=== PATIENT | male | born 1940 | race Caucasian/White ===

== ENCOUNTER 2019-02-08 09:27 | Emergency (ER) | payer OTHER, SELFPAY ==
[2019-02-08 09:28] VITALS: BP 194/126; PULSE 92; RESP 18; TEMP 36.6; O2SAT 96; BMI 31.5
--- NOTE | 2019-02-08 09:46 | RAD_ITS ---
STUDY: X-RAY - LEFT SHOULDER REASON FOR EXAM: Male, 78 years old. History of fall 3 days ago. TECHNIQUE: 4 view(s) of the shoulder. COMPARISON: None. FINDINGS: There is mild degenerative arthrosis of the glenohumeral articulation. There is degenerative arthrosis of the acromioclavicular joint without inferior osseous spur formation. Normal acromion. There are mild cystic changes of the humeral head. The soft tissue structures are unremarkable. Normal visualized pulmonary apex. RAD/Shoulder min 2 Views IMPRESSION: Mild degenerative arthrosis. No demonstrated acute fracture or dislocation. Electronically Signed: Larry Neely MD at 10:50 EDT Tel , Service support ,
[2019-02-08 09:58] VITALS: BP 176/80; PULSE 94; RESP 18; O2SAT 95
--- NOTE | 2019-02-08 11:40 | ED.VISSUMM ---
- ER Visit Summary Date of Service: 02/08/19 Chief Complaint: Shoulder pain History of Present Illness: The patient is a 78 M with left shoulder pain for about a week. No fever or chills associated with this. No chest pain or shortness of breath associated with this. He denies any back pain or tearing sensation. He does have some paraspinal left-sided neck pain. He is here since he had so much pain last night he could not sleep. It is worse when he lays on his left shoulder. Physical Examination: Otherwise normal exam, regular rate and rhythm clear lungs bilaterally abdomen is soft and nontender he has left shoulder tenderness but is posterior, he has no pain with abduction of the shoulder or any rotator cuff symptoms. He also has quite a bit of left paraspinal neck pain with a few trigger points. Emergency Department Course and Treatment: X-ray of the shoulder does show some degeneration, otherwise no fracture. He appears well I will discharge him with analgesia for home. He may even need an MRI of either the shoulder or the C-spine. At this time he has normal strength and sensation and no neurological symptoms no need for further evaluation daily. He has no chest pain shortness of breath, he has reproducible left-sided shoulder pain there is no cardiac component. Discharge stable condition Impression: [Left shoulder pain] This note was generated with Zelgor dictation software. It may contain incorrect words, spelling, and punctuation that were not noted in review of the chart prior to signing ED Disposition - Plan for ED Patient: Disposition: Home or Assisted Living Instructions: ED Sprain Strain Neck Prescriptions: Hydrocodone Bitart/Apap 5-325 [[employer] 5MG-325MG] 1 tab PO Q4H PRN PRN 2 Days #10 tab PRN Reason: Pain [facility]errals: [facility] [Primary Care Provider] - 3-5 Days
--- NOTE | 2019-02-08 11:44 | ED.DCSUM_ITS ---
- ER Visit Summary Date of Service: 02/08/19 Chief Complaint: Shoulder pain History of Present Illness: The patient is a 78 M with left shoulder pain for about a week. No fever or chills associated with this. No chest pain or shortness of breath associated with this. He denies any back pain or tearing se nsation. He does have some paraspinal left-sided neck pain. He is here since he had so much pain last night he could not sleep. It is worse when he lays on his left shoulder. Physical Examination: Otherwise normal exam, regular rate and rhythm clear lungs bilaterally abdomen is soft and nontender he has left shoulder tenderness but is posterior, he has no pain with abduction of the shoulder or any rotator cuff symptoms. He also has quite a bit of left paraspinal neck pain with a few trigger points. Emergency Department Course and Treatment: X-ray of the shoulder does show some degeneration, otherwise no fracture. He appears well I will discharge him with analgesia for home. He may even need an MRI of either the shoulder or the C-spine. At this time he has normal strength and sensation and no neurological symptoms no need for further evaluation daily. He has no chest pain shortness of breath, he has reproducible left-sided shoulder pain there is no cardiac component. Discharge stable condition Impression: [Left shoulder pain] This note was generated with PixSense dictation software. It may contain incorrect words, spelling, and punctuation that were not noted in review of the chart prior to signing ED Disposition - Plan for ED Patient: Disposition: Home or Assisted Living Instructions: ED Sprain Strain Neck Prescriptions: Hydrocodone Bitart/Apap 5-325 [[place] 5MG-325MG] 1 tab PO Q4H PRN PRN 2 Days #10 tab PRN Reason: Pain [facility]errals: [facility] [[facility]] - 3-5 Days
[2019-02-08 11:53] VITALS: BP 162/78; PULSE 82; RESP 16; O2SAT 98
== END 2019-02-08 11:54 | disposition home or self-care (01) ==
PROVIDERS: Emergency Provider Emergency Medicine
DX: M25.512 Pain in left shoulder (principal); M54.2 Cervicalgia; E11.9 Type 2 diabetes mellitus without complications; M10.9 Gout, unspecified
CPT/HCPCS: 73030; 99282

== ENCOUNTER 2019-02-22 02:25 | Emergency (ER) | payer OTHER, SELFPAY ==
[2019-02-22 02:26] VITALS: BP 192/114; PULSE 96; RESP 18; TEMP 36.6; O2SAT 96; BMI 31.6
[2019-02-22 02:33] VITALS: BP 169/90
[2019-02-22 03:11] VITALS: PULSE 75; RESP 20; O2SAT 98
--- NOTE | 2019-02-22 03:12 | ED.VISSUMM ---
- ER Visit Summary Date of Service: 02/22/19 Chief Complaint: [Elevated blood sugar] History of Present Illness: The patient is a 78 M [presents to the emergency department with an elevated blood sugar that started yesterday. Patient states he is got as high as 244 at home. Patient's had some problems with his left shoulder and was seen in the emergency department about a week ago or so and had x-rays which were negative. Patient was started on tapering dose prednisone. Patient states that he has a history of borderline diabetes that usually diet controlled and exercise controlled. Patient became concerned tonight when he could not get his blood sugar down by exercising on a bicycle. Patient states it went from 230 down to 193 and he felt like that was out of control. He denies any recent illness. He denies any chest pain. He denies shortness of breath. He denies vomiting or diarrhea. He denies any fevers.] Physical Examination: [HEENT-PERRLA, EOMI. Cranial nerves II through XII grossly intact. TMs clear. Mucous membranes moist. No adenopathy. Cardiovascular-regular rate and rhythm without murmur or ectopy Lungs-clear to auscultation, chest wall stable without crepitus or subcu emphysema Abdomen-normoactive bowel sounds, soft, nontender, no rebound or rigidity, no peritoneal signs. Extremities-intact ?4, normal range of motion, normal pulses, atraumatic] Test Results: [Patient had a fingerstick blood sugar 173.] Emergency Department Course and Treatment: [Patient did not require any further treatment] Treatment Plan: [Patient advised to keep a journal of his blood pressure and his blood sugars. Patient to follow-up with his primary care physician. I explained that his blood sugars may be elevated related to the prednisone. Patient does not appear to be in DKA. Patient is otherwise not been ill.] Disposition: [Discharged home in stable condition] Impression: [Hyperglycemia] This note was generated with Telespree dictation software. It may contain incorrect words, spelling, and punctuation that were not noted in review of the chart prior to signing ED Disposition - Plan for ED Patient: [facility]errals: [facility] [Primary [facility] Provider] -
--- NOTE | 2019-02-22 03:28 | ED.DEP ---
ED Disposition - Plan for ED Patient: Instructions: ED Hyperglycemia New Susp Diabetes Referrals: [facility] [Primary [facility] Provider] - 3-5 Days
[2019-02-24 16:31] LABS: Bedside Glucose 173 mg/dL (70-110)
== END 2019-02-22 03:44 | disposition home or self-care (01) ==
LOC: ED 03:16
PROVIDERS: Emergency Provider Emergency Medicine
DX: E11.65 Type 2 diabetes mellitus with hyperglycemia (principal); Z79.51 Long term (current) use of inhaled steroids; Z79.899 Other long term (current) drug therapy; I10 Essential (primary) hypertension
CPT/HCPCS: 82962; 99282

== ENCOUNTER 2022-02-20 13:52 | Emergency (ER) | payer OTHER, SELFPAY ==
[2022-02-20 13:53] VITALS: BP 156/107; PULSE 106; RESP 20; TEMP 36.6; O2SAT 98; BMI 33.5
--- NOTE | 2022-02-20 14:05 | EKG12_ITS ---
Test Reason : SOB Blood Pressure : / mmHG Vent. Rate : 099 BPM Atrial Rate : 099 BPM P-R Int : 184 ms QRS Dur : 146 ms QT Int : 398 ms P-R-T Axes : 036 -10 035 degrees QTc Int : 510 ms Sinus rhythm with Premature atrial complexes Right bundle branch block Abnormal ECG Confirmed by SWATI MOTA, OLINDA ([id number]), communications editor SURJIT DISLA ([id number]) on 02/22/2022 9:57:47 AM Referred By: EULALOI Confirmed By:OLINDA LONGORIA MD
--- NOTE | 2022-02-20 14:11 | EDS_ITS ---
HPI History of Present Illness Chief Complaint: Shortness of Breath Informant: patient and spouse/S.O. Onset/Context/Timing Onset: Days Context: gradual Timing: Intermittent Current Severity: Mild Maximum Severity: Mild Associated Symptoms Negative for cough, fever, sore throat, sweats, white sputum, yellow sputum or green sputum Chest Pain: Positive for None Narrative Narrative: 81-year-old male past medical history diabetes. He denies any history of cardiac disease. Currently is on no medications. States the last several days he has noticed he is more short of breath primarily with exertion. He also has developed swelling in his feet and has gained about 10 pounds. He denies any history of any type of cardiac disease. No history of renal disease. He denies any chest pain or fever. He has never had a DVT or PE or recent risk factors. PE Risk Factors: Negative for Cancer, OCP + Smoking + > 35, Prior DVT or PE, Recent immobilization, Recent surgery and Recent travel Prior similar symptoms: No Recent Illness/Hospitalization: No PFSH PFSH Medical History Diabetes Heart murmur Hx of gout Hx of rotator cuff tear Home Medications ibuprofen 400 mg PO Q6H PRN PRN 02/22/19 [History Last Taken Unknown] furosemide [Lasix] 20 mg PO DAILY #30 tab 02/20/22 [Rx Last Taken Unknown] multivitamin 1 tab PO DAILY 02/20/22 [History Last Taken Unknown] Allergy/AdvReac Type Severity Reaction Status Date / Time amoxicillin Allergy Shortness Verified 02/20/22 13:54 of breath ciprofloxacin [From Cipro] Allergy Other Verified 02/20/22 13:55 simvastatin [From Zocor] Allergy Unknown Verified 02/20/22 13:54 naproxen AdvReac Unknown Verified 02/20/22 13:54 Social History Smoking Status: Never smoker ROS ROS ED ROS Narrative Leg swelling. Exertional shortness of breath. Review of Systems ROS Unobtainable: Denies due to encephalopathy Constitutional Constitutional ED: Denies fever(s) Eyes Eyes: Denies change in vision ENT ENT ED: Denies ear pain Cardiovascular Cardiovascular: Denies chest pain or palpitations Respiratory/Chest Respiratory/Chest: Reports dyspnea and dyspnea on exertion; Denies cough or sputum Gastrointestinal Gastrointestinal: Denies abdominal pain, diarrhea, nausea or vomiting Genitourinary Genitourinary ED: Denies dysuria Musculoskeletal Musculoskeletal: Denies myalgias Integumentary Denies rash Neurologic Neurologic: Denies headache(s) Psychiatric Psychiatric: Denies depression Endocrine Endocrinology: Denies polyuria Hematologic/Lymphatic Hematologic/Lymphatic: Denies easy bruising Allergic/Immunologic Allergic/Immunologic ED: Denies urticaria EXAM Physical Exam Narrative Exam Narrative: 81-year-old male no acute distress vital signs stable afebrile. Pulse ox 90% on room air no hypoxia. HEENT exam unremarkable. Neck nontender. Lungs clear to auscultation bilaterally. Heart shows no mildly tachycardic rate about 105. I do not appreciate a murmur he has a history of a murmur. Abdomen soft nontender obese. Moving all 4 extremities. Nontender. He does have edema in his lower extremities ankles and feet. Calves are nontender. No cords. Neurologically is awake and alert with no focal motor deficits. Const Vital Signs: 02/20/22 13:53 02/20/22 14:05 02/20/22 14:06 Temperature 98 F Temperature Source Temporal Pulse Rate 106 H Respiratory Rate 20 H Respiratory Effort Short of Breath Labored Respiratory Pattern Tachypnea Blood Pressure 156/107 H Blood Pressure Mean 123 Pulse Ox 98 Oxygen Delivery Method Room Air Room Air 02/20/22 14:07 Temperature Temperature Source Pulse Rate Respiratory Rate Respiratory Effort Short of Breath Respiratory Pattern Blood Pressure Blood Pressure Mean Pulse Ox Oxygen Delivery Method Positive well nourished, well developed and obese; Negative for cachectic, contractures or unkempt General Appearance ED: well developed and NAD; Negative for unkempt, cachectic, contractures or pallor Nutritional Appearance: obese; Negative for cachectic HEENT Reports moist mucous membranes atraumatic; Negative for trauma or tenderness Eyes PERRL and EOMs intact bilaterally Neck no lymphadenopathy, supple, no meningeal signs and no JVD General: Negative for tenderness Resp normal respiratory effort and clear to auscultation bilaterally Auscultation: Negative for rales, rhonchi or wheezes Cardio regular rate, regular rhythm, S1 normal heart sound, S2 normal heart sound and no murmurs GI non-tender, non-distended and no masses Auscultation: normoactive bowel sounds Palpation: soft; Negative for tender, guarding or rebound tenderness present Back/Spine normal to inspection; Negative for no CVA tenderness Extremity normal to inspection General Extremety ED: Yes edema; Negative for tenderness General Extremity: edema Neuro oriented x3 Sensorium / Orientation: alert, oriented to person, oriented to place and oriented to time; Negative for orientation impaired, confused, lethargic or stuporous Motor Exam: strength 5/5 throughout Psych mental status grossly normal Appearance: Negative for unkempt Thought Process: normal thought process Skin no wounds General Skin Exam: Negative for pallor Lesions: no lesions Rashes: no rashes MDM MDM MDM Narrative Medical decision making narrative: 81-year-old male with weight gain and pedal edema. He will undergo a cardiac work-up for shortness of breath and peripheral edema. Repeat exam patient is doing well. Given the fact that he is short of breath and had weight gain and peripheral edema along with his labs I think he has new onset CHF. I do not have a specific cause. I discussed this with the patient and his . His vital signs are stable. Pulse ox is 90% on room air. No hypoxia.. Will be discharged home on Lasix 20 mg a day. Dose given here and prescription sent to local pharmacy. Follow-up with Dr. Johnson Freedman of cardiology. Lab Data Attestation: I reviewed the patient's lab results. Lab results narrative: CBC shows a white count of 6. H&H of 15 and 45. Platelets of 203. Electrolytes unremarkable gap of 6 BUN of 22 creatinine 1.1. Glucose 126. Troponin is 53. BNP is 1233. Labs: Laboratory Results - last 24 hr 02/20/22 02/20/22 02/20/22 14:15 14:15 14:15 WBC 6.1 RBC 4.86 Hgb 15.0 Hct 45.3 MCV 93.2 MCH 30.9 MCHC 33.1 RDW Std Deviation 45.1 H RDW Coeff of Ernestine 13.3 Plt Count 203 MPV 10.1 Immature Gran % (Auto) 0.300 Neut % (Auto) 78.7 H Lymph % (Auto) 10.6 L [place]lin % (Auto) 8.8 Eos % (Auto) 1.3 Baso % (Auto) 0.3 Absolute Neuts (auto) 4.8 Absolute Lymphs (auto) 0.65 L Nucleated RBC % 0 Sodium 137 Potassium 4.2 Chloride 104 Carbon Dioxide 27.0 Anion Gap 6 BUN 22 H Creatinine 1.12 Estim Creat Clear Calc 54.32 Est GFR (MDRD) Af Amer 81 Est GFR (MDRD) Non-Af 67 BUN/Creatinine Ratio 19.6 Glucose 226 H Calcium 9.0 Troponin I High Sens 53 B-Natriuretic Peptide 1233.2 H Radiography Chest X-Ray - ED: 1 View, Heart, Lungs, Mediastinum, Bony Structures, Chronic Changes, Cardiomegaly and CHF Diagnostic Testing: Clinical Impression(s) from Imaging Studies Chest X-Ray 02/20/22 14:40 IMPRESSION: Patchy infiltrates at the lung bases more prominent on the left side with blunting of the angles. Mild increased interstitial markings in the right midlung. Electronically Signed: Adolfo Huerta MD at 14:57 EDT Reading Location ID and State: [facility] / [place] , Service support , Chest x-ray, portable, single view interpreted myself shows cardiomegaly and vascular congestion consistent with CHF. No pneumonia. No effusions. The only other chest x-ray we have for comparison is from 2005 and is cardiac silhouette is much larger now than 17 years ago. Rhythm Strip Rhythm Strip: Sinus Rhythm Rate: 99 Ectopy: PAC(s) EKG Initial EKG: Attestation: I personally reviewed and interpreted this EKG as follows: Interpretation: Sinus Rhythm, No Acute Injury Pattern and RBBB Comments: Sinus rhythm rate of 99. PACs. Right bundle branch. Discharge Plan Triage Chief Complaint: Shortness of Breath ED Provider: Chidi Valverde Dx/Rx/DC Orders Clinical Impression: Acute dyspnea, Congestive heart failure, History of diabetes mellitus Instructions: ED Heart Failure, Congestive (CHF) Prescriptions: New furosemide [Lasix] 20 mg tablet 20 mg PO DAILY Qty: 30 RF: 0 No Action ibuprofen 400 MG tablet 400 mg PO Q6H PRN PRN (Reason: GOUT) RF: 0 multivitamin Tablet 1 tab PO DAILY RF: 0 [facility] Care Provider: [facility] Referrals: Johnson Freedman MD [STAFF PHYSICIAN] - As soon as possible [facility] [Primary Care Provider] - Activity Restrictions/Additional Instructions: Start taking your Lasix 20 mg once a day in the morning after breakfast. It will make you urinate a lot more. This is albumin of the fluid in your legs and your lungs. This medication can decrease your potassium level so make sure you are eating plenty of fruits and vegetables. Call and follow-up with a portrait artist Dr. Johnson Freedman. They can get an echocardiogram of your heart and help with the treatment of your congestive heart failure. Return to emergency department if you are feeling worse. Disposition Disposition: Home, Self Care
[2022-02-20 14:28] LABS: Absolute Lymphocyte Count 0.65 X10^3/uL (0.83-4.51); Absolute Neutrophil Count 4.8 X10^3/uL (2.0-7.7); Basophil# 0.02 X10^3/uL; Basophil% 0.3 % (0-1); Eosinophil# 0.08 X10^3/uL; Eosinophils% 1.3 % (0-5); Hematocrit 45.3 % (40-54); Lymphocyte # 0.65 X10^3/ul (0.83-4.51); Lymphocyte % 10.6 % (19-41); Mean Corp Hgb Conc 33.1 g/dL (32-36); Mean Corpuscular Hgb 30.9 pg (27.0-32.0); Mean Corpuscular Volume 93.2 fL (80-94); Mean Platelet Vol. 10.1 fl (6.2-12.0); Monocyte# 0.54 X10^3/uL; Monocyte% 8.8 % (0-10); NRBC Flagged by Analyzer 0 % (0-5); Neutrophil # 4.82 X10^3/uL (2.7-7.7); Neutrophil % 78.7 % (47-70); Platelet Count 203 K/mm3 (150-450); RBC Distribution Width CV 13.3 % (11.6-14.6); RBC Distribution Width SD 45.1 fl (35.1-43.9); Red Blood Count 4.86 M/mm3 (4.6-6.2); White Blood Count 6.1 K/mm3 (4.4-11.0)
--- NOTE | 2022-02-20 14:40 | RAD_ITS ---
STUDY: X-RAY CHEST REASON FOR EXAM: Male, 81 years old. Chest pain TECHNIQUE: Single AP portable view of the chest. COMPARISON: None. FINDINGS: EKG electrodes are seen. Patchy infiltrates at the lung bases slightly worse on the left side with blunting of both costophrenic angles. Mild increased interstitial markings in the right mid lung. Follow-up is recommended. Normal size heart. Normal mediastinum and epi. Normal visualized pulmonary arteries. There is atherosclerotic calcification of the aortic arch with tortuosity. There are diffuse degenerative changes of the visualized thoracic spine. Normal visualized ribs, clavicles, and shoulders. There is no demonstrated abnormality of the visualized soft tissue structures of the upper abdomen. RAD/Chest 1 View (Portable) IMPRESSION: Patchy infiltrates at the lung bases more prominent on the left side with blunting of the angles. Mild increased interstitial markings in the right midlung. Electronically Signed: Adolfo Huerta MD at 14:57 EDT ,
[2022-02-20 14:42] LABS: Anion Gap 6 (5-15); BUN 22 mg/dL (7-18); BUN/Creat Ratio 19.6 RATIO (10-20); Chloride 104 mmol/L (98-107); Creatinine, Serum 1.12 mg/dL (0.70-1.30); EST Glomerular Filtration Rate 67 mL/min (>60); Est Glom Filt Rate - Afr Amer 81 mL/min (>60); Estimated Creatinine Clearance 54.32 ml/min; Glucose 226 mg/dL (74-106); Potassium 4.2 mmol/L (3.5-5.1); Sodium Level 137 mmol/L (136-145); Troponin-I HS 53 pg/mL (3.0-78.0)
[2022-02-20 14:57] LABS: BNP,B-Type NATRIURETIC PEPTIDE 1233.2 pg/mL (0-100)
[2022-02-20] MEDS: Furosemide 20 MG Tablet PO (15:23)
[2022-02-20 15:27] VITALS: BP 136/94; PULSE 87; RESP 15; O2SAT 98
--- NOTE | 2022-02-21 12:55 | CM.ED ---
ER RNCM DC f/u Call: ED Visit 02.20.22 for SOB Called listed number on demographics. S/w patient and this instructional writer introduced self and role. Patient states has been taking the Lasix and seems to me working. Still has some swelling to his feet and currently relaxing with them propped up. Has an Echo scheduled for 03.22.22 at [facility] and they are going to request records from [facility]. Has called a few times to Dr Freedman and left a Vm, waiting on return call to sett up f/u appointment but states they only work half days some days. No further concerns or issues voiced at this time. This writers contact provided should they have any questions or issues with their f/u and care needs. FARA Rivas
== END 2022-02-20 15:29 | disposition home or self-care (01) ==
PROVIDERS: Emergency Provider Emergency Medicine; Visit Provider Emergency Medicine
DX: R06.00 Dyspnea, unspecified (principal); I50.9 Heart failure, unspecified; E11.9 Type 2 diabetes mellitus without complications; Z79.899 Other long term (current) drug therapy; M10.9 Gout, unspecified; E66.9 Obesity, unspecified; I45.10 Unspecified right bundle-branch block; I49.1 Atrial premature depolarization; Z68.33 Body mass index [BMI] 33.0-33.9, adult
CPT/HCPCS: 71045; 80048; 83880; 84484; 85025; 93005; 99285

== ENCOUNTER 2022-04-07 07:27 | Inpatient (IN) | payer OTHER, SELFPAY ==
[2022-04-07] VITALS (13 sets, daily range): BP systolic 85–150; BP diastolic 69–102; PULSE 68–112; RESP 16–24; TEMP 35.8–36.6; O2SAT 95–98; BMI 30.5; BMI 30.7
--- NOTE | 2022-04-07 07:47 | RAD_ITS ---
STUDY: X-RAY CHEST REASON FOR EXAM: Male, 82 years old. dyspnea TECHNIQUE: Single AP portable view of the chest. COMPARISON: 02/20/2022 FINDINGS: Poor inspiration with some bibasilar atelectasis. There is no demonstrated pleural abnormality. There is moderate cardiac enlargement. Normal mediastinum and epi. Normal visualized pulmonary arteries. Normal visualized aortic arch and descending thoracic aorta. Normal visualized thoracic spine. Normal visualized ribs, clavicles, and shoulders. There is no demonstrated abnormality of the visualized soft tissue structures of the upper abdomen. RAD/Chest 1 View (Portable) IMPRESSION: Poor inspiration with some bibasilar atelectasis. Electronically Signed: Smooth Boyer MD at 8:47 EDT ,
--- NOTE | 2022-04-07 07:47 | EKG12_ITS ---
Test Reason : CP Blood Pressure : / mmHG Vent. Rate : 106 BPM Atrial Rate : 107 BPM P-R Int : 000 ms QRS Dur : 148 ms QT Int : 356 ms P-R-T Axes : 000 106 -39 degrees QTc Int : 472 ms Atrial fibrillation Right bundle branch block Inferior infarct , age undetermined Anterior infarct , age undetermined Abnormal ECG Confirmed by JERE MOTA, GUY ([id number]), editor map SURJIT DISLA ([id number]) on 04/09/2022 1:28:08 PM Referred By: Confirmed By:GUY OQUENDO MD
--- NOTE | 2022-04-07 08:00 | ED.VIS.DYS ---
HPI History of Present Illness Chief Complaint: Shortness of Breath Informant: patient and family Narrative Narrative: 82-year-old male presenting to the emergency room with worsening shortness of breath. Patient notes that he was diagnosed with congestive heart failure several weeks ago. Started on Lasix. He reports an echocardiogram being performed in [place] through the [place]. He notes over the past couple days his shortness of breath is gotten worse. He notes some swelling of his legs. No fever. He notes no change in bowel or bladder habits. He denies any palpitations or chest pain. [facility] Medical History Carpal tunnel syndrome Cervical spinal stenosis CHF (congestive heart failure) Diabetes Diabetic neuropathy Gout Heart murmur Hx of rotator cuff tear Mixed hyperlipidemia Type 2 diabetes mellitus Home Medications ibuprofen 200 mg PO DAILY PRN 02/22/19 [History Last Taken Unknown] multivitamin 1 tab PO DAILY 02/20/22 [History Last Taken Unknown] aspirin 81 mg tablet,delayed release 81 mg PO DAILY 03/06/22 [History Last Taken Unknown] cholecalciferol (vitamin D3) 50 mcg (2,000 unit) tablet 50 mcg PO DAILY 03/06/22 [History Last Taken Unknown] furosemide [Lasix] 40 mg PO DAILY 04/07/22 [History Last Taken Unknown] Allergy/AdvReac Type Severity Reaction Status Date / Time amoxicillin Allergy Shortness Verified 04/07/22 07:34 of breath ciprofloxacin [From Cipro] Allergy Other Verified 04/07/22 07:34 simvastatin [From Zocor] Allergy Unknown Verified 04/07/22 07:34 naproxen AdvReac Unknown Verified 04/07/22 07:34 Family History Father Heart disease Surgical History History of tonsillectomy Social History Smoking Status: Never smoker alcohol intake: current details: occasional substance use type: does not use caffeine: Yes ROS ROS ED Constitutional Constitutional ED: Denies chills or weight loss Eyes Eyes: Denies change in vision or diplopia ENT ENT ED: Denies ear pain, rhinorrhea or sore throat Cardiovascular Cardiovascular: Denies chest pain, orthopnea, palpitations or racing heartbeat Respiratory/Chest Respiratory/Chest: Reports dyspnea and dyspnea on exertion; Denies cough or orthopnea Gastrointestinal Gastrointestinal: Denies abdominal pain, diarrhea, nausea or vomiting Genitourinary Genitourinary ED: Denies dysuria, hematuria or urinary frequency Musculoskeletal Musculoskeletal: Denies arthralgias or myalgias Integumentary Denies abscess or rash Neurologic Neurologic: Denies headache(s) or weakness Psychiatric Psychiatric: Denies anxiety, depression, suicidal ideation or suicidal thoughts Endocrine Endocrinology: Denies polydipsia, polyphagia or polyuria Allergic/Immunologic Allergic/Immunologic ED: Denies mouth swelling, tongue swelling or urticaria EXAM Physical Exam Const Vital Signs: 04/07/22 07:30 04/07/22 08:00 Temperature 96.5 F L Temperature Source Temporal Pulse Rate 106 H 107 H Respiratory Rate 24 H 22 H Blood Pressure 117/83 H 115/93 H Blood Pressure Mean 94 100 Pulse Ox 98 95 Oxygen Delivery Method Nasal Cannula Nasal Cannula Oxygen Flow Rate (L/min) 2 2 Positive well nourished, well developed and obese General Appearance ED: well developed Nutritional Appearance: obese HEENT Reports normocephalic, head/scalp atraumatic, TM's clear and moist mucous membranes atraumatic Tympanic Membrane ED: Yes TM's clear Eyes PERRL and EOMs intact bilaterally Neck no lymphadenopathy, supple and no JVD Resp normal respiratory effort and clear to auscultation bilaterally Cardio Rate: tachycardic Rhythm: abnormal rhythm irregularly irregular GI normal to inspection, nondistended, normoactive bowel sounds and non-tender Palpation: soft Back/Spine no CVA tenderness and normal ROM Extremity normal to inspection General Extremety ED: Yes edema General Extremity: edema Neuro oriented x3 and CN's II-XII intact bilaterally Sensorium / Orientation: alert Motor Exam: strength 5/5 throughout Psych mental status grossly normal Mood & Affect: Negative for depressed or tearful Skin no rashes or lesions noted and no wounds Rashes: no rashes MDM MDM MDM Narrative Medical decision making narrative: My interpretation of the chest x-ray is vascular congestion. White count 7.8 with a hemoglobin of 16.6. Creatinine 1.67 with a BUN of 37. Glucose of 240. Troponin is elevated 812 with a TSH of 4.15. Beta natruretic peptide elevated at 1200. Patient found to be in new onset atrial fibrillation. He was given Cardizem as well as aspirin and Lasix. Plan is admission into hospital Lab Data Attestation: I reviewed the patient's lab results. Labs: Laboratory Results - last 24 hr 04/07/22 04/07/22 04/07/22 07:40 07:40 07:40 WBC 7.8 RBC 5.30 Hgb 16.6 H Hct 50.0 MCV 94.3 H MCH 31.3 MCHC 33.2 RDW Std Deviation 48.1 H RDW Coeff of Ernestine 13.9 Plt Count 238 MPV 11.7 Immature Gran % (Auto) 0.500 Neut % (Auto) 80.8 H Lymph % (Auto) 9.9 L Warrick % (Auto) 7.7 Eos % (Auto) 0.8 Baso % (Auto) 0.3 Absolute Neuts (auto) 6.3 Absolute Lymphs (auto) 0.77 L Nucleated RBC % 0 PT 16.5 H INR 1.4 APTT 27.3 Sodium 132 L Potassium 4.7 Chloride 96 L Carbon Dioxide 23.0 Anion Gap 13 BUN 37 H Creatinine 1.67 H Estim Creat Clear Calc 38.08 Est GFR (MDRD) Af Amer 51 L Est GFR (MDRD) Non-Af 42 L BUN/Creatinine Ratio 22.2 H Glucose 240 H Calcium 9.0 Magnesium 2.3 Total Bilirubin 1.20 H AST 29 ALT 30 Alkaline Phosphatase 85 Troponin I High Sens 812 H* B-Natriuretic Peptide Total Protein 7.3 Albumin 3.8 Globulin 3.5 Albumin/Globulin Ratio 1.1 TSH 4.15 H 04/07/22 07:40 WBC RBC Hgb Hct MCV MCH MCHC RDW Std Deviation RDW Coeff of Ernestine Plt Count MPV Immature Gran % (Auto) Neut % (Auto) Lymph % (Auto) Warrick % (Auto) Eos % (Auto) Baso % (Auto) Absolute Neuts (auto) Absolute Lymphs (auto) Nucleated RBC % PT INR APTT Sodium Potassium Chloride Carbon Dioxide Anion Gap BUN Creatinine Estim Creat Clear Calc Est GFR (MDRD) Af Amer Est GFR (MDRD) Non-Af BUN/Creatinine Ratio Glucose Calcium Magnesium Total Bilirubin AST ALT Alkaline Phosphatase Troponin I High Sens B-Natriuretic Peptide 1212.6 H Total Protein Albumin Globulin Albumin/Globulin Ratio TSH Radiography Diagnostic Testing: Clinical Impression(s) from Imaging Studies Chest X-Ray 04/07/22 07:47 IMPRESSION: Poor inspiration with some bibasilar atelectasis. Electronically Signed: Smooth Boyer MD at 8:47 EDT , EKG Initial EKG: Attestation: I personally reviewed and interpreted this EKG as follows: Comments: Atrial fibrillation with a ventricular rate of 106 bpm. Right bundle branch block noted Discharge Plan Dx/Rx/DC Orders Clinical Impression: CHF (congestive heart failure), Atrial fibrillation, new onset, Non-ST elevation MS (NSTEMI) Disposition Disposition: Acute Care Hospital [facility]
[2022-04-07 08:21] LABS: Absolute Lymphocyte Count 0.77 X10^3/uL (0.83-4.51); Absolute Neutrophil Count 6.3 X10^3/uL (2.0-7.7); Basophil# 0.02 X10^3/uL; Basophil% 0.3 % (0-1); Eosinophil# 0.06 X10^3/uL; Eosinophils% 0.8 % (0-5); Hemoglobin 16.6 g/dL (13.0-16.5); Lymphocyte # 0.77 X10^3/ul (0.83-4.51); Lymphocyte % 9.9 % (19-41); Mean Corp Hgb Conc 33.2 g/dL (32-36); Mean Corpuscular Hgb 31.3 pg (27.0-32.0); Mean Corpuscular Volume 94.3 fL (80-94); Mean Platelet Vol. 11.7 fl (6.2-12.0); Monocyte% 7.7 % (0-10); NRBC Flagged by Analyzer 0 % (0-5); Neutrophil # 6.32 X10^3/uL (2.7-7.7); Neutrophil % 80.8 % (47-70); Platelet Count 238 K/mm3 (150-450); RBC Distribution Width CV 13.9 % (11.6-14.6); RBC Distribution Width SD 48.1 fl (35.1-43.9); White Blood Count 7.8 K/mm3 (4.4-11.0)
[2022-04-07 08:31] LABS: International Normalized Ratio 1.4; Prothrombin Time (Protime)PT. 16.5 SECONDS (11.7-14.9)
[2022-04-07 08:32] LABS: Partial Thromboplast Time 27.3 Seconds (24.1-36.2)
[2022-04-07 08:43] LABS: ALB/GLOB Ratio 1.1 RATIO (0.9-2.4); AST(SGOT) 29 U/L (15-37); Alanine Aminotransfer ALT/SGPT 30 U/L (16-61); Albumin, Serum 3.8 g/dL (3.2-5.0); Alkaline Phosphatase 85 U/L (45-117); Anion Gap 13 (5-15); BUN 37 mg/dL (7-18); BUN/Creat Ratio 22.2 RATIO (10-20); Chloride 96 mmol/L (98-107); Creatinine, Serum 1.67 mg/dL (0.70-1.30); EST Glomerular Filtration Rate 42 mL/min (>60); Est Glom Filt Rate - Afr Amer 51 mL/min (>60); Estimated Creatinine Clearance 38.08 ml/min; Globulin 3.5 g/dL (2.2-4.2); Glucose 240 mg/dL (74-106); Magnesium 2.3 mg/dL (1.6-2.6); Potassium 4.7 mmol/L (3.5-5.1); Protein, Total 7.3 g/dL (6.4-8.2); Sodium Level 132 mmol/L (136-145); Thyroid Stim Hormone (TSH) 4.15 uIU/mL (0.358-3.74); Troponin-I HS 812 pg/mL (3.0-78.0)
[2022-04-07 08:50] LABS: BNP,B-Type NATRIURETIC PEPTIDE 1212.6 pg/mL (0-100)
--- NOTE | 2022-04-07 08:50 | NURSING ---
CALLED [facility], TALKED TO KAREN
[2022-04-07] MEDS: dilTIAZem 25 MG/5 ML Vial 10 MG IV BOLUS (09:01)
[2022-04-07] MEDS: Furosemide 100 MG/10 ML Vial 60 MG IV (09:02)
[2022-04-07] MEDS: Aspirin 325 MG Tablet PO (09:06)
--- NOTE | 2022-04-07 09:35 | NURSING ---
0848 CALLED [facility]. TALKED TO KAREN.
--- NOTE | 2022-04-07 09:49 | NURSING ---
DR CHRISTIANSON FOR DR GALLAGHER
--- NOTE | 2022-04-07 09:55 | NURSING ---
CALLED [facility], TALKED TO KAREN IN TRANSFER LINE. SHE PUT INFO IN THEIR COMPUTER FOR C[facility]ODINATOR. THERE IS ONLY ONE ON WEEKENDS AND WE ARE THE 4TH ONE IN LINE
--- NOTE | 2022-04-07 09:59 | NURSING ---
FAXED CHART TO CARE COODINATOR AT [facility] [phone]
[2022-04-07 10:43] LABS: Troponin-I HS 1157 pg/mL (3.0-78.0)
--- NOTE | 2022-04-07 11:21 | HP.PCM.HOS_ITS ---
Documented by User: Urvashi Hair NP, [employer] 04/07/22 12:49 HPI - General General Date of Admission: 04/07/22 Date of Service: 04/07/22 Chief Complaint: Shortness of breath HPI Narrative JOSE WALDROP, is a 82 M who presents to the emergency room due to shortness of breath. States he was recently diagnosed with CHF and started on Lasix. He reports increased lower extremity swelling. Denies known weight gain. Denies chest pain. States today he had significant weakness and lightheadedness along with shortness of breath. His family called the squad and he was noted to have low oxygen levels. Patient states he has had shortness of breath for the past 3 to 4 weeks which has recently worsened despite being on Lasix. He states he is able to sleep on his side at night. He also states he has been working out as he does daily and yesterday rode his bike for 12 minutes. He denies chest pain during exercise. Does report occasional palpitations as well as dyspnea with exertion however reports he is still able to complete his daily activities and exercise. He denies previous cardiac history or cardiac evaluation prior to recent CHF diagnosis. He did undergo echocardiogram in the past 1 to 2 weeks through the [place] and was told his ejection fraction is 25%. He denies history of A. fib. Denies history of stress test or heart cath. He has a past medical history of type 2 diabetes mellitus which he states is diet and exercise controlled. Denies other medical history. [facility] Medical History Carpal tunnel syndrome Cervical spinal stenosis CHF (congestive heart failure) Diabetes Diabetic neuropathy Gout Heart murmur Hx of rotator cuff tear Mixed hyperlipidemia Type 2 diabetes mellitus Home Medications ibuprofen 200 mg PO DAILY PRN 02/22/19 [History Last Taken Unknown] multivitamin 1 tab PO DAILY 02/20/22 [History Last Taken 04/06/22 09:00] aspirin 81 mg tablet,delayed release 81 mg PO DAILY 03/06/22 [History Last Taken 04/07/22 09:00] cholecalciferol (vitamin D3) 50 mcg (2,000 unit) tablet 50 mcg PO DAILY 03/06/22 [History Last Taken 04/06/22 09:00] coenzyme Q10 [CoQ-10] 100 mg PO TID 04/07/22 [History Last Taken 04/07/22 09:00] cyanocobalamin (vitamin B-12) [Vitamin B-12] 1,000 mcg PO DAILY 04/07/22 [History Last Taken 04/07/22 09:00] furosemide [Lasix] 40 mg PO DAILY 04/07/22 [History Last Taken 04/07/22 09:00] lisinopril 2.5 mg PO DAILY 04/07/22 [History Last Taken 04/07/22 09:00] Allergy/AdvReac Type Severity Reaction Status Date / Time amoxicillin Allergy Shortness Verified 04/07/22 07:34 of breath ciprofloxacin [From Cipro] Allergy Other Verified 04/07/22 07:34 simvastatin [From Zocor] Allergy Unknown Verified 04/07/22 07:34 naproxen AdvReac Unknown Verified 04/07/22 07:34 Family History (Updated 04/07/22 @ 12:14 by Urvashi Hair NP, [employer]) Father Heart disease Diabetes Mother No cardiac disease Surgical History History of tonsillectomy Social History Smoking Status: Never smoker alcohol intake: current details: occasional substance use type: does not use caffeine: Yes ROS Constitutional Constitutional: Reports fatigue and weakness; Denies change in weight, chills or fever(s) Cardiovascular Cardiovascular: Reports edema and lightheadedness; Denies chest pain, p alpitations or syncope Respiratory/Chest Respiratory/Chest: Reports dyspnea and shortness of breath with exertion; Denies cough, productive cough or wheezing Gastrointestinal Gastrointestinal: Denies abdominal pain, constipation, diarrhea, nausea or vomiting Genitourinary Genitourinary: Denies burning urination, difficulty urinating, dysuria, hematuria, urinary frequency, urinary incontinence or urinary urgency Musculoskeletal Musculoskeletal: Denies back pain, joint pain or muscle weakness Integumentary Integumentary: Denies erythema, lesions, rash or wounds Neurologic Neurologic: Denies abnormal speech, confusion, dizziness, focal weakness, numbness, paresthesias, seizure-like activity or syncope Psychiatric Psychiatric: Denies anxiety or depression Hematologic/Lymphatic Hematologic/Lymphatic: Denies anemia, easy bleeding or easy bruising Allergic/Immunologic Allergic/Immunologic: Denies hives or asthma Vital Signs Vital Signs Vital Signs: 04/07/22 07:30 04/07/22 08:00 04/07/22 09:00 Temperature 96.5 F L Temperature Source Temporal Pulse Rate 106 H 107 H 110 H Respiratory Rate 24 H 22 H 22 H Blood Pressure 117/83 H 115/93 H 107/78 Blood Pressure Mean 94 100 87 Pulse Ox 98 95 97 Oxygen Delivery Method Nasal Cannula Nasal Cannula Nasal Cannula Oxygen Flow Rate (L/min) 2 2 2 04/07/22 09:45 04/07/22 10:22 Temperature 96.5 F L Temperature Source Temporal Pulse Rate 92 69 Respiratory Rate 19 H 16 Blood Pressure 85/69 L 85/69 L Blood Pressure Mean 74 74 Pulse Ox 96 96 Oxygen Delivery Method Nasal Cannula Nasal Cannula Oxygen Flow Rate (L/min) 2 2 Weight Weight: 225 lb 1.471 oz Body Mass Index (BMI) 30.5 Physical Exam Const alert, oriented x3 and no apparent distress Orientation / Consciousness: awake, oriented to person, oriented to place and oriented to time HEENT normocephalic and moist oral mucous membranes Eyes PERRL, EOMs intact bilaterally and conjunctivae normal Neck no lymphadenopathy Resp clear to auscultation bilaterally Auscultation: diminished lung sounds Cardio Cardio Narrative: Irregular rhythm, ++murmur Peripheral Pulses: pulses 2+ throughout GI normal to inspection, nondistended, normoactive bowel sounds, non-tender and non-distended Extremity normal to inspection General Extremity: edema bilateral lower extremity Details: moderate Skin no rashes or lesions noted Lesions: no lesions Rashes: no rashes Trauma: no lacerations or abrasions Neuro CN's II-XII intact bilaterally, no focal motor deficits, no sensory deficits noted and deep tendon reflexes 2+ bilaterally Psych mental status grossly normal and affect normal Results Lab / Micro Data Result Diagrams: 04/07/22 07:40 04/07/22 07:40 Labs: Laboratory Results - last 24 hr 04/07/22 07:40: WBC 7.8, RBC 5.30, Hgb 16.6 H, Hct 50.0, MCV 94.3 H, MCH 31.3, MCHC 33.2, RDW Std Deviation 48.1 H, RDW Coeff of Ernestine 13.9, Plt Count 238, MPV 11.7, Immature Gran % (Auto) 0.500, Neut % (Auto) 80.8 H, Lymph % (Auto) 9.9 L, Thurston % (Auto) 7.7, Eos % (Auto) 0.8, Baso % (Auto) 0.3, Absolute Neuts (auto) 6.3, Absolute Lymphs (auto) 0.77 L, Nucleated RBC % 0 04/07/22 07:40: PT 16.5 H, INR 1.4, APTT 27.3 04/07/22 07:40: Sodium 132 L, Potassium 4.7, Chloride 96 L, Carbon Dioxide 23.0, Anion Gap 13, BUN 37 H, Creatinine 1.67 H, Estim Creat Clear Calc 38.08, Est GFR (MDRD) Af Amer 51 L, Est GFR (MDRD) Non-Af 42 L, BUN/Creatinine Ratio 22.2 H, Glucose 240 H, Calcium 9.0, Magnesium 2.3, Total Bilirubin 1.20 H, AST 29, ALT 3 0, Alkaline Phosphatase 85, Troponin I High Sens 812 H*, Total Protein 7.3, A lbumin 3.8, Globulin 3.5, Albumin/Globulin Ratio 1.1, TSH 4.15 H 04/07/22 07:40: B-Natriuretic Peptide 1212.6 H 04/07/22 10:17: Troponin I High Sens 1157 H* Radiology Impression Chest X-Ray 04/07/22 07:47 IMPRESSION: Poor inspiration with some bibasilar atelectasis. Electronically Signed: Smooth Boyer MD at 8:47 EDT , Assessment & Plan Assessment/Plan (1) Atrial fibrillation, new onset: PLAN: 1. Acute hypoxic respiratory failure secondary to acute heart failure with reduced ejection fraction-patient's oxygen noted to be in the 80s per EMS report. Tachypnea improved following IV Lasix. Continue supplement oxygen to maintain O2 at or above 90%. BNP 1212. IV Lasix. Strict I&O. Daily weight. Per patient, recent echo at [place] with EF 25%. Obtain records. Cardiology consulted due to new diagnosis reduced EF with NSTEMI and new onset a.fib. 2. New onset atrial fibrillation-received IV Cardizem bolus in ED. Now appears sinus tach on telemetry. Initiated on oral metoprolol. Heparin subcu. TSH mildly elevated, T4 normal. Mag normal. Transition to Eliquis 2.5 twice daily at discharge. 3. NSTEMI-EKG without acute ST-T changes. Trend enzymes. Aspirin. Allergy to statin. Cardiology consulted. 4. Acute kidney injury-likely cardiorenal. IV Lasix. Trend BMP. 5. Hyperlipidemia-not on statin, reported allergy. Fasting lipid panel in a.m. 6. Type 2 diabetes mellitus-states he is diet and exercise controlled. Glucose elevated. Check hemoglobin A1c. Accu-Cheks with sliding scale insulin. DVT Prophylaxis-Heparin This patient was seen by MELONY Aguero under the supervision of Dr. De La Vega. Time spent examining patient, reviewing data and subsequent management of care: 28 Minutes Documented by User: Dr. Troy De La Vega MD 04/07/22 17:21 HPI - General General Date of Admission: 04/07/22 [facility] Medical History Carpal tunnel syndrome Cervical spinal stenosis CHF (congestive heart failure) Diabetes Diabetic neuropathy Gout Heart murmur Hx of rotator cuff tear Mixed hyperlipidemia Type 2 diabetes mellitus Home Medications ibuprofen 200 mg PO DAILY PRN 02/22/19 [History Last Taken Unknown] multivitamin 1 tab PO DAILY 02/20/22 [History Last Taken 04/06/22 09:00] aspirin 81 mg tablet,delayed release 81 mg PO DAILY 03/06/22 [History Last Taken 04/07/22 09:00] cholecalciferol (vitamin D3) 50 mcg (2,000 unit) tablet 50 mcg PO DAILY 03/06/22 [History Last Taken 04/06/22 09:00] coenzyme Q10 [CoQ-10] 100 mg PO TID 04/07/22 [History Last Taken 04/07/22 09:00] cyanocobalamin (vitamin B-12) [Vitamin B-12] 1,000 mcg PO DAILY 04/07/22 [History Last Taken 04/07/22 09:00] furosemide [Lasix] 40 mg PO DAILY 04/07/22 [History Last Taken 04/07/22 09:00] lisinopril 2.5 mg PO DAILY 04/07/22 [History Last Taken 04/07/22 09:00] Allergy/AdvReac Type Severity Reaction Status Date / Time amoxicillin Allergy Shortness Verified 04/07/22 07:34 of breath ciprofloxacin [From Cipro] Allergy Other Verified 04/07/22 07:34 simvastatin [From Zocor] Allergy Unknown Verified 04/07/22 07:34 naproxen AdvReac Unknown Verified 04/07/22 07:34 Family History (Updated 04/07/22 @ 12:14 by Urvashi Hair NP, [employer]) Father Heart disease Diabetes Mother No cardiac disease Surgical History History of tonsillectomy Social History Smoking Status: Never smoker alcohol intake: current details: occasional substance use type: does not use caffeine: Yes Results Lab / Micro Data Result Diagrams: 04/07/22 07:40 04/07/22 07:40 Charges/Coding Addendum Addendum: Dr. De La Vega: I personally reviewed the chart and examined the patient, and agree with the above findings. 82-year-old male who generally gets his care at the [place] presented to the hospital with ongoing fatigue and shortness of breath. He also notes that his lower extremities were more swollen than usual. He is not a great historian however his son mentions that [facility] had [facility]% however he has not had any further follow-up on this. He is on Lasix and initially was on 20 mg daily but was told recently to increase to 40 mg daily. In the ER he was found to have new onset A. fib as well as a slight troponin bump however with serial troponins he is increased to 3200, therefore with his non-STEMI and his new onset A. fib I placed him on a heparin drip. I discussed with him and his family the need for a heart cath and consulted cardiology who agreed. Also continue with low-dose Lopressor given his systolic dysfunction. He also does have a murmur on exam potentially consistent with an aortic stenosis will [facility] versus repeating another one here if we do not have to. Clinical time spent in all aspects of patient care: 45 minutes Visit Charges Inpatient E&M: 56455 Init Hosp L3
--- NOTE | 2022-04-07 12:05 | PCM.CONS.C ---
Assessment & Plan Assessment/Plan (1) CHF (congestive heart failure): PLAN: He does present with congestive heart failure which is likely with reduced left ventricular function Would recommend obtaining the results of the echocardiogram from the [facility] Would initiate diuresis with intravenous Lasix As heart rate improves would start low-dose beta-clare (2) Non-ST elevation [place] (NSTEMI): PLAN: He does have evidence of a non-ST elevation myocardial infarction. I would recommend that this be further evaluated with a cardiac catheterization. The timing of the above will depend on his renal function as well as resuscitative attempts from his congestive heart failure. (3) Atrial fibrillation, new onset: PLAN: He does have new onset atrial fibrillation. We will continue with a ventricular response rate In the meantime he would be on heparin or Lovenox until he undergoes his invasive procedure. After that he should be considered for Eliquis 2.5 mg twice a day (4) Heart murmur: PLAN: Does have a cardiac murmur suggestive of aortic stenosis and mitral regurgitation. The above will be confirmed with the echocardiogram. Further recommendations on his heart valve issues would ultimately depend on his angiographic evaluation. HPI Consult Data Date of Consult: 04/07/22 HPI Narrative HPI Narrative: JOSE WALDROP, is a 82 M who presents with shortness of breath which has been progressive ever since he celebrated his birthday in March and had some ham. He has also noted worsening of his pedal edema as well as worsening fatigue. He does have a history of hyperlipidemia, diabetes mellitus and is being concurrently followed at the [facility]. He had been placed on some diuretic therapy over there and also had undergone echocardiogram last week. The results of the above are pending. He had seen my colleague Dr. Johnson Freedman in the office for an evaluation. Since his evaluation he thinks that he has gotten somewhat worse necessitating admission to the hospital. He denies any chest pain or paroxysmal nocturnal dyspnea but he has had pedal edema. In the emergency room today he appears to be in atrial fibrillation with a rapid ventricular response rate which is different from his previous rhythm which was normal sinus rhythm with a right bundle branch block. His troponin is also elevated as is his natruretic peptide level. Cardiology was called for further evaluation and management. [facility] Medical History Carpal tunnel syndrome Cervical spinal stenosis CHF (congestive heart failure) Diabetes Diabetic neuropathy Gout Heart murmur Hx of rotator cuff tear Mixed hyperlipidemia Type 2 diabetes mellitus Home Medications ibuprofen 200 mg PO DAILY PRN 02/22/19 [History Last Taken Unknown] multivitamin 1 tab PO DAILY 02/20/22 [History Last Taken Unknown] aspirin 81 mg tablet,delayed release 81 mg PO DAILY 03/06/22 [History Last Taken Unknown] cholecalciferol (vitamin D3) 50 mcg (2,000 unit) tablet 50 mcg PO DAILY 03/06/22 [History Last Taken Unknown] furosemide [Lasix] 40 mg PO DAILY 04/07/22 [History Last Taken Unknown] Allergy/AdvReac Type Severity Reaction Status Date / Time amoxicillin Allergy Shortness Verified 04/07/22 07:34 of breath ciprofloxacin [From Cipro] Allergy Other Verified 04/07/22 07:34 simvastatin [From Zocor] Allergy Unknown Verified 04/07/22 07:34 naproxen AdvReac Unknown Verified 04/07/22 07:34 Family History Father Heart disease Mother No cardiac disease Surgical History History of tonsillectomy Social History Smoking Status: Never smoker alcohol intake: current details: occasional substance use type: does not use caffeine: Yes ROS Constitutional Constitutional: Denies fever(s) or weight loss Eyes Eyes: Reports systems reviewed and no addt'l complaints, except as documented ENT HEENT: Reports systems reviewed and no addt'l complaints, except as documented Cardiovascular Cardiovascular: Reports dyspnea at rest, dyspnea on exertion, edema and paroxysmal nocturnal dyspnea; Denies chest pain at rest, chest pain with activity or palpitations Respiratory/Chest Respiratory/Chest: Reports dyspnea on exertion, productive cough, shortness of breath at rest and shortness of breath with exertion Gastrointestinal Gastrointestinal: Denies change in bowel habits, nausea, vomiting or weight changes Genitourinary Genitourinary: Denies difficulty urinating Musculoskeletal Musculoskeletal: Denies joint stiffness or muscle weakness Integumentary Integumentary: Denies lesions Neurologic Neurologic: Denies dizziness or syncope Psychiatric Psychiatric: Denies anxiety Endocrine Endocrinology: Denies excessive sweating or fatigue Hematologic/Lymphatic Hematologic/Lymphatic: Denies anemia Allergic/Immunologic Allergic/Immunologic: Denies seasonal rhinorrhea Physical Exam Const alert, oriented x3 and no apparent distress General Appearance: cooperative HEENT hearing grossly normal bilaterally Head and Scalp: atraumatic Eyes EOMs intact bilaterally Neck General: normal visual inspection Chest inspection of chest normal and palpation of chest normal Resp normal respiratory effort Auscultation: clear to auscultation bilaterally Cardio S1 normal heart sound and S2 normal heart sound Cardio Narrative: Irregular rate and rhythm Jugular Venous Distention: JVD GI normal to inspection, nondistended, normoactive bowel sounds Extremity normal capillary refill General Extremity: edema bilateral Peripheral Pulses: Yes pulses 2+ throughout and femoral pulses present Skin no rashes or lesions noted Neuro oriented x3 and CN's II-XII intact bilaterally Psych Appearance: grossly normal and appropriate Risk Stratification Risk Stratification Applicable: No Objective Data Vital Signs: Vital Signs Temp Pulse Resp BP Pulse Ox 96.5 F L 69 16 85/69 L 96 04/07/22 10:22 04/07/22 10:22 04/07/22 10:22 04/07/22 10:22 04/07/22 10:22 Oxygen Flow Rate (L/min) 2 Oxygen Delivery Method Nasal Cannula Weight: 220 lb 0.341 oz Body Mass Index (BMI) 30.7 Lab / Micro Data Result Diagrams: 04/07/22 07:40 04/07/22 07:40 Labs: Laboratory Results - last 24 hr 04/07/22 07:40: WBC 7.8, RBC 5.30, Hgb 16.6 H, Hct 50.0, MCV 94.3 H, MCH 31.3, MCHC 33.2, RDW Std Deviation 48.1 H, RDW Coeff of Ernestine 13.9, Plt Count 238, MPV 11.7, Immature Gran % (Auto) 0.500, Neut % (Auto) 80.8 H, Lymph % (Auto) 9.9 L, [place] % (Auto) 7.7, Eos % (Auto) 0.8, Baso % (Auto) 0.3, Absolute Neuts (auto) 6.3, Absolute Lymphs (auto) 0.77 L, Nucleated RBC % 0 04/07/22 07:40: PT 16.5 H, INR 1.4, APTT 27.3 04/07/22 07:40: Sodium 132 L, Potassium 4.7, Chloride 96 L, Carbon Dioxide 23.0, Anion Gap 13, BUN 37 H, Creatinine 1.67 H, Estim Creat Clear Calc 38.08, Est GFR (MDRD) Af Amer 51 L, Est GFR (MDRD) Non-Af 42 L, BUN/Creatinine Ratio 22.2 H, Glucose 240 H, Calcium 9.0, Magnesium 2.3, Total Bilirubin 1.20 H, AST 29, ALT 30, Alkaline Phosphatase 85, Troponin I High Sens 812 H*, Total Protein 7.3, Albumin 3.8, Globulin 3.5, Albumin/Globulin Ratio 1.1, TSH 4.15 H 04/07/22 07:40: B-Natriuretic Peptide 1212.6 H 04/07/22 10:17: Troponin I High Sens 1157 H* Cardiology Labs/Tests 04/07/22 07:40: WBC 7.8, RBC 5.30, Hgb 16.6 H, Hct 50.0, MCV 94.3 H, MCH 31.3, MCHC 33.2, Plt Count 238, MPV 11.7, Immature Gran % (Auto) 0.500, Neut % (Auto) 80.8 H, Lymph % (Auto) 9.9 L, [place] % (Auto) 7.7, Eos % (Auto) 0.8, Baso % (Auto) 0.3, Absolute Neuts (auto) 6.3, Nucleated RBC % 0 04/07/22 07:40: PT 16.5 H, INR 1.4, APTT 27.3 04/07/22 07:40: Sodium 132 L, Potassium 4.7, Chloride 96 L, Carbon Dioxide 23.0, Anion Gap 13, BUN 37 H, Creatinine 1.67 H, Est GFR (MDRD) Af Amer 51 L, Est GFR (MDRD) Non-Af 42 L, BUN/Creatinine Ratio 22.2 H, Glucose 240 H, Calcium 9.0, Magnesium 2.3, Total Bilirubin 1.20 H 04/07/22 07:40: B-Natriuretic Peptide 1212.6 H Rhythm: EKG: ECHO: Stress Test: Cardiac Cath: PCI: CT Surgery: Holter monitor: EPS: PPM: CXR: Chest CT Scan: Radiography Diagnostic Testing: Radiology Impression Chest X-Ray 04/07/22 07:47 IMPRESSION: Poor inspiration with some bibasilar atelectasis. Electronically Signed: Smooth Boyer MD at 8:47 EDT ,
[2022-04-07 12:13] LABS: T4 Free Direct 1.14 ng/dL (0.76-1.46)
[2022-04-07] MEDS: Metoprolol Tartrate 25 MG Tablet 12.5 MG PO ×2 (14:01→22:52)
[2022-04-07] MEDS: Furosemide 40 MG/4 ML Vial IV ×2 (14:03→17:55)
[2022-04-07] MEDS: 0.9% Saline Lock 10 ML Syringe IV ×2 (14:06→17:58)
[2022-04-07 14:28] LABS: Hemoglobin A1c 7.8 % (3.8-5.6)
[2022-04-07 14:55] LABS: Troponin-I HS 3209 pg/mL (3.0-78.0)
[2022-04-07 16:55] LABS: Bedside Glucose 238 mg/dL (74-106)
[2022-04-07] MEDS: Insulin Lispro 100 UNIT/ML INSULN.PEN SC ×2 (17:41→22:51)
[2022-04-07] MEDS: Heparin Injection (Vial) 5,000 UNIT/ML VIAL 4000 UNIT IV (17:44)
[2022-04-07] MEDS: Atorvastatin Calcium 40 MG Tablet PO (22:52)
[2022-04-07 23:50] LABS: Bedside Glucose 168 mg/dL (74-106)
[2022-04-08] VITALS (10 sets, daily range): BP systolic 105–132; BP diastolic 74–98; PULSE 72–104; RESP 18; TEMP 36.4–36.7; O2SAT 98–100
[2022-04-08 01:10] LABS: Partial Thromboplast Time 47.9 Seconds (24.1-36.2)
[2022-04-08] MEDS: Insulin Lispro 100 UNIT/ML INSULN.PEN SC ×4 (06:59→21:36)
[2022-04-08 07:10] LABS: Bedside Glucose 190 mg/dL (74-106)
[2022-04-08 07:37] LABS: Partial Thromboplast Time 50.1 Seconds (24.1-36.2)
[2022-04-08 07:44] LABS: Absolute Neutrophil Count 5.3 X10^3/uL (2.0-7.7); Basophil# 0.02 X10^3/uL; Basophil% 0.3 % (0-1); Eosinophil# 0.07 X10^3/uL; Hematocrit 47.3 % (40-54); Hemoglobin 16.1 g/dL (13.0-16.5); Lymphocyte % 14.1 % (19-41); Mean Corpuscular Hgb 31.2 pg (27.0-32.0); Mean Corpuscular Volume 91.7 fL (80-94); Mean Platelet Vol. 11.8 fl (6.2-12.0); Monocyte# 0.63 X10^3/uL; Monocyte% 8.9 % (0-10); NRBC Flagged by Analyzer 0 % (0-5); Neutrophil # 5.34 X10^3/uL (2.7-7.7); Neutrophil % 75.4 % (47-70); Platelet Count 212 K/mm3 (150-450); RBC Distribution Width CV 13.9 % (11.6-14.6); RBC Distribution Width SD 46.7 fl (35.1-43.9); Red Blood Count 5.16 M/mm3 (4.6-6.2); White Blood Count 7.1 K/mm3 (4.4-11.0)
[2022-04-08 07:48] LABS: Anion Gap 10 (5-15); BUN 47 mg/dL (7-18); BUN/Creat Ratio 32.2 RATIO (10-20); Calcium,Total 9.1 mg/dL (8.5-10.1); Chloride 99 mmol/L (98-107); Cholesterol 105 mg/dL (200); Creatinine, Serum 1.46 mg/dL (0.70-1.30); EST Glomerular Filtration Rate 49 mL/min (>60); Est Glom Filt Rate - Afr Amer 60 mL/min (>60); Estimated Creatinine Clearance 42.26 ml/min; Glucose 171 mg/dL (74-106); High Density Lipoprotein 30 mg/dL; Potassium 4.1 mmol/L (3.5-5.1); Sodium Level 133 mmol/L (136-145); Triglycerides 69 mg/dL; Very Low Density Lipoprotein 14 mg/dL (5-40)
--- NOTE | 2022-04-08 09:01 | PN.CARD_ITS ---
Subjective Subjective Patient seen and evaluated. Appears to be breathing better this morning. Objective Data Vital Signs: Vital Signs Temp Pulse Resp BP Pulse Ox 98.0 F 98 18 132/98 H 99 04/08/22 04:30 04/08/22 07:00 04/08/22 04:30 04/08/22 04:30 04/08/22 04:30 Oxygen Flow Rate (L/min) 2 Oxygen Delivery Method Nasal Cannula Weight: 220 lb 0.341 oz Body Mass Index (BMI) 30.7 Intake & Output: Intake and Output for Last 24 Hours 04/06/22 04/07/22 04/08/22 23:59 23:59 23:59 Intake Total 240 / 240 150.95 / 150.95 Output Total 600 / 759 159 / 159 Balance -360 / -519 -8.05 / -8.05 Lab / Micro Data Result Diagrams: 04/08/22 07:15 04/08/22 07:15 Labs: Laboratory Results - last 24 hr 04/07/22 07:40: Free T4 1.14 04/07/22 10:17: Troponin I High Sens 1157 H* 04/07/22 11:00: Hemoglobin A1c 7.8 H 04/07/22 13:40: Troponin I High Sens 3209 H* 04/07/22 16:27: POC Glucose 238 H 04/07/22 22:49: POC Glucose 168 H 04/07/22 23:59: APTT 47.9 H 04/08/22 06:58: POC Glucose 190 H 04/08/22 07:15: WBC 7.1, RBC 5.16, Hgb 16.1, Hct 47.3, MCV 91.7, MCH 31.2, MCHC 34.0, RDW Std Deviation 46.7 H, RDW Coeff of Ernestine 13.9, Plt Count 212, MPV 11.8, Immature Gran % (Auto) 0.300, Neut % (Auto) 75.4 H, Lymph % (Auto) 14.1 L, [place] % (Auto) 8.9, Eos % (Auto) 1.0, Baso % (Auto) 0.3, Absolute Neuts (auto) 5.3, Absolute Lymphs (auto) 1.00, Nucleated RBC % 0 04/08/22 07:15: Sodium 133 L, Potassium 4.1, Chloride 99, Carbon Dioxide 24.0, Anion Gap 10, BUN 47 H, Creatinine 1.46 H, Estim Creat Clear Calc 42.26, Est GFR (MDRD) Af Amer 60, Est GFR (MDRD) Non-Af 49 L, BUN/Creatinine Ratio 32.2 H, Glucose 171 H, Calcium 9.1, Triglycerides 69, Cholesterol 105, LDL Cholesterol 61, VLDL Cholesterol 14, HDL Cholesterol 30 L 04/08/22 07:15: APTT 50.1 H Cardiology Labs/Tests 04/07/22 11:00: Hemoglobin A1c 7.8 H 04/07/22 23:59: APTT 47.9 H 04/08/22 07:15: WBC 7.1, RBC 5.16, Hgb 16.1, Hct 47.3, MCV 91.7, MCH 31.2, MCHC 34.0, Plt Count 212, MPV 11.8, Immature Gran % (Auto) 0.300, Neut % (Auto) 75.4 H, Lymph % (Auto) 14.1 L, [place] % (Auto) 8.9, Eos % (Auto) 1.0, Baso % (Auto) 0.3, Absolute Neuts (auto) 5.3, Nucleated RBC % 0 04/08/22 07:15: Sodium 133 L, Potassium 4.1, Chloride 99, Carbon Dioxide 24.0, Anion Gap 10, BUN 47 H, Creatinine 1.46 H, Est GFR (MDRD) Af Amer 60, Est GFR (MDRD) Non-Af 49 L, BUN/Creatinine Ratio 32.2 H, Glucose 171 H, Calcium 9.1, Triglycerides 69, Cholesterol 105, LDL Cholesterol 61, VLDL Cholesterol 14, HDL Cholesterol 30 L 04/08/22 07:15: APTT 50.1 H Rhythm: EKG: ECHO: Stress Test: Cardiac Cath: PCI: CT Surgery: Holter monitor: EPS: PPM: CXR: Chest CT Scan: Physical Exam Const alert, oriented x3 and no apparent distress General Appearance: cooperative HEENT hearing grossly normal bilaterally Head and Scalp: atraumatic Eyes EOMs intact bilaterally Neck General: normal visual inspection Chest inspection of chest normal and palpation of chest normal Resp normal respiratory effort Auscultation: clear to auscultation bilaterally Cardio S1 normal heart sound and S2 normal heart sound Cardio Narrative: Irregular rate and rhythm Jugular Venous Distention: JVD Rhythm: abnormal rhythm GI normal to inspection, nondistended, normoactive bowel sounds Extremity normal capillary refill and no pedal edema General Extremity: edema bilateral Peripheral Pulses: Yes pulses 2+ throughout and femoral pulses present Skin no rashes or lesions noted Neuro oriented x3 and CN's II-XII intact bilaterally Psych Appearance: grossly normal and appropriate Assessment & Plan Assessment/Plan (1) CHF (congestive heart failure): PLAN: He does present with congestive heart failure which is likely with reduced left ventricular function * Would recommend obtaining the results of the echocardiogram from the [facility] * Would continue diuresis with intravenous Lasix * As heart rate improves would start low-dose beta-clare (2) Non-ST elevation [place] (NSTEMI): PLAN: He does have evidence of a non-ST elevation myocardial infarction. I would recommend that this be further evaluated with a cardiac catheterization. The timing of the above will depend on his renal function as well as resuscitative attempts from his congestive heart failure. (3) Atrial fibrillation, new onset: PLAN: He does have new onset atrial fibrillation. We will continue with a ventricular response rate In the meantime he would be on heparin or Lovenox until he undergoes his invasive procedure. After that he should be considered for Eliquis 2.5 mg twice a day (4) Heart murmur: PLAN: Does have a cardiac murmur suggestive of aortic stenosis and mitral regurgitation. The above will be confirmed with the echocardiogram. Further recommendations on his heart valve issues would ultimately depend on his angiographic evaluation.
[2022-04-08] MEDS: Furosemide 40 MG/4 ML Vial IV ×2 (10:05→17:10)
[2022-04-08] MEDS: Metoprolol Tartrate 25 MG Tablet PO ×2 (10:05→21:36)
[2022-04-08] MEDS: Aspirin E.C. 81 MG Tablet PO (10:05)
[2022-04-08] MEDS: 0.9% Saline Lock 10 ML Syringe IV ×2 (10:05→17:10)
[2022-04-08] MEDS: Potassium Chloride Oral Tablet 20 MEQ 40 MEQ PO (10:05)
--- NOTE | 2022-04-08 11:33 | PCM.PN.HOSP ---
Documented by User: Urvashi Hair NP, PIPELINE MAINTENANCE SUPERVISOR-C 04/08/22 11:43 Subjective Subjective Patient seen and examined. Reports shortness of breath is overall improving. Denies chest pain. Lower extremity swelling improving. Objective Data Objective Data Vital Signs: Vital Signs Temp Pulse Resp BP Pulse Ox 97.5 F L 72 18 114/89 H 98 04/08/22 10:00 04/08/22 10:05 04/08/22 10:00 04/08/22 10:05 04/08/22 10:00 Oxygen Flow Rate (L/min) 2 Oxygen Delivery Method Room Air Weight: 220 lb 0.341 oz Body Mass Index (BMI) 30.7 Intake & Output: Intake and Output for Last 24 Hours 04/06/22 04/07/22 04/08/22 23:59 23:59 23:59 Intake Total 240 / 240 150.95 / 150.95 Output Total 600 / 759 159 / 159 Balance -360 / -519 -8.05 / -8.05 Lab / Micro Data Result Diagrams: 04/08/22 07:15 04/08/22 07:15 Labs: Laboratory Results - last 24 hr 04/07/22 07:40: Free T4 1.14 04/07/22 11:00: Hemoglobin A1c 7.8 H 04/07/22 13:40: Troponin I High Sens 3209 H* 04/07/22 16:27: POC Glucose 238 H 04/07/22 22:49: POC Glucose 168 H 04/07/22 23:59: APTT 47.9 H 04/08/22 06:58: POC Glucose 190 H 04/08/22 07:15: WBC 7.1, RBC 5.16, Hgb 16.1, Hct 47.3, MCV 91.7, MCH 31.2, MCHC 34.0, RDW Std Deviation 46.7 H, RDW Coeff of Ernsetine 13.9, Plt Count 212, MPV 11.8, Immature Gran % (Auto) 0.300, Neut % (Auto) 75.4 H, Lymph % (Auto) 14.1 L, Early % (Auto) 8.9, Eos % (Auto) 1.0, Baso % (Auto) 0.3, Absolute Neuts (auto) 5.3, Absolute Lymphs (auto) 1.00, Nucleated RBC % 0 04/08/22 07:15: Sodium 133 L, Potassium 4.1, Chloride 99, Carbon Dioxide 24.0, Anion Gap 10, BUN 47 H, Creatinine 1.46 H, Estim Creat Clear Calc 42.26, Est GFR (MDRD) Af Amer 60, Est GFR (MDRD) Non-Af 49 L, BUN/Creatinine Ratio 32.2 H, Glucose 171 H, Calcium 9.1, Triglycerides 69, Cholesterol 105, LDL Cholesterol 61, VLDL Cholesterol 14, HDL Cholesterol 30 L 04/08/22 07:15: APTT 50.1 H Physical Exam Const alert, oriented x3 and no apparent distress Orientation / Consciousness: awake, oriented to person, oriented to place and oriented to time HEENT normocephalic and moist oral mucous membranes Eyes PERRL, EOMs intact bilaterally and conjunctivae normal Neck no lymphadenopathy Resp clear to auscultation bilaterally Auscultation: diminished lung sounds Cardio regular rate and regular rhythm Cardio Narrative: ++murmur Peripheral Pulses: pulses 2+ throughout GI normal to inspection, nondistended, normoactive bowel sounds, non-tender and non-distended Extremity normal to inspection General Extremity: edema bilateral lower extremity Details: mild Skin no rashes or lesions noted Skin Narrative: Chronic skin changes bilateral lower extremities Lesions: no lesions Rashes: no rashes Trauma: no lacerations or abrasions Neuro CN's II-XII intact bilaterally, no focal motor deficits, no sensory deficits noted and deep tendon reflexes 2+ bilaterally Psych mental status grossly normal and affect normal Assessment & Plan Assessment/Plan (1) Non-ST elevation [place] (NSTEMI): (2) Atrial fibrillation, new onset: (3) CHF (congestive heart failure): PLAN: 1. Acute hypoxic respiratory failure secondary to acute heart failure with reduced ejection fraction-patient's oxygen noted to be in the 80s per EMS report. Tachypnea improved following IV Lasix. Oxygen now stable on room air. BNP 1212. IV Lasix. Strict I&O. Daily weight. Per patient, recent echo at [facility] with EF 25%. Awaiting [facility] records. Cardiology consulted. Walking pulse ox prior to discharge. 2. New onset atrial fibrillation-received IV Cardizem bolus in ED. converted to sinus rhythm. Continue oral metoprolol. Heparin drip. TSH mildly elevated, T4 normal. Mag normal. Transition to Eliquis 2.5 twice daily at discharge. 3. NSTEMI-EKG without acute ST-T changes. Aspirin, statin. Cardiology consulted. Plan for heart cath on Saturday. 4. Acute kidney injury-likely cardiorenal. Improving with IV Lasix. Trend BMP. 5. Hyperlipidemia-initiated on statin. 6. Type 2 diabetes mellitus-states he is diet and exercise controlled. Hemoglobin A1c 7.8%. Accu-Cheks with sliding scale insulin. DVT Prophylaxis-Heparin This patient was seen by MELONY Aguero under the supervision of Dr. De La Vega. Time spent examining patient, reviewing data and subsequent management of care: 14 Minutes Documented by User: Dr. Troy De La Vega MD 04/08/22 13:00 Objective Data Lab / Micro Data Result Diagrams: 04/08/22 07:15 04/08/22 07:15 Charges/Coding Addendum Addendum: Dr. De La Vega: I personally reviewed the chart and examined the patient, and agree with the above findings. 82-year-old male who generally gets his care at the [place] presented to the hospital with ongoing fatigue and shortness of breath. He also notes that his lower extremities were more swollen than usual. He is not a great historian however his son mentions that he had [facility]% however he has not had any further follow-up on this. He is on Lasix and initially was on 20 mg daily but was told recently to increase to 40 mg daily. In the ER he was found to have new onset A. fib as well as a slight troponin bump however with serial troponins he is increased to 3200, therefore with his non-STEMI and his new onset A. fib I placed him on a heparin drip. I discussed with him and his family the need for a heart cath and consulted cardiology who agreed. Also continue with low-dose Lopressor given his systolic dysfunction. He also does have a murmur on exam potentially consistent with an aortic stenosis will [facility] versus repeating another one here if we do not have to. Clinical time spent in all aspects of patient care: 45 minutes 04/08/2022: Doing well, states that he has overall improvement in shortness of breath. Denies any chest pain or lightheadedness today. Swelling is maybe a little bit improved. Continue with the heparin drip and the plan for heart cath tomorrow morning. Still awaiting records from the [place], but as stated previously, his son states that his EF is 25%. Tolerating metoprolol, will increase to 25 mg p.o. twice daily. Clinical time spent in all aspects of patient care: 18 minutes Visit Charges Inpatient E&M: 00641 Subs Hosp L2
[2022-04-08 12:41] LABS: Bedside Glucose 207 mg/dL (74-106)
[2022-04-08 14:31] LABS: Partial Thromboplast Time 50.1 Seconds (24.1-36.2)
[2022-04-08 17:11] LABS: Bedside Glucose 187 mg/dL (74-106)
[2022-04-08] MEDS: Atorvastatin Calcium 40 MG Tablet PO (21:37)
[2022-04-08 21:54] LABS: Partial Thromboplast Time 56.9 Seconds (24.1-36.2)
[2022-04-08 23:41] LABS: Bedside Glucose 230 mg/dL (74-106)
[2022-04-09] VITALS (22 sets, daily range): BP systolic 90–125; BP diastolic 68–90; PULSE 76–97; RESP 16–18; TEMP 36.3–36.6; O2SAT 94–100
[2022-04-09 03:10] LABS: Absolute Lymphocyte Count 0.91 X10^3/uL (0.83-4.51); Absolute Neutrophil Count 5.3 X10^3/uL (2.0-7.7); Basophil# 0.02 X10^3/uL; Basophil% 0.3 % (0-1); Eosinophil# 0.05 X10^3/uL; Eosinophils% 0.7 % (0-5); Hematocrit 46.6 % (40-54); Hemoglobin 15.9 g/dL (13.0-16.5); Lymphocyte # 0.91 X10^3/ul (0.83-4.51); Mean Corp Hgb Conc 34.1 g/dL (32-36); Mean Corpuscular Hgb 31.1 pg (27.0-32.0); Mean Corpuscular Volume 91.2 fL (80-94); Mean Platelet Vol. 11.8 fl (6.2-12.0); Monocyte# 0.74 X10^3/uL; Monocyte% 10.6 % (0-10); NRBC Flagged by Analyzer 0 % (0-5); Neutrophil # 5.25 X10^3/uL (2.7-7.7); Neutrophil % 75.1 % (47-70); Platelet Count 207 K/mm3 (150-450); RBC Distribution Width CV 13.9 % (11.6-14.6); RBC Distribution Width SD 47.1 fl (35.1-43.9); Red Blood Count 5.11 M/mm3 (4.6-6.2)
[2022-04-09 03:31] LABS: Partial Thromboplast Time 62.8 Seconds (24.1-36.2)
[2022-04-09 03:38] LABS: International Normalized Ratio 1.4; Prothrombin Time (Protime)PT. 17.3 SECONDS (11.7-14.9)
[2022-04-09 03:54] LABS: Anion Gap 13 (5-15); BUN 55 mg/dL (7-18); BUN/Creat Ratio 36.9 RATIO (10-20); Calcium,Total 9.1 mg/dL (8.5-10.1); Chloride 98 mmol/L (98-107); Creatinine, Serum 1.49 mg/dL (0.70-1.30); EST Glomerular Filtration Rate 48 mL/min (>60); Est Glom Filt Rate - Afr Amer 58 mL/min (>60); Estimated Creatinine Clearance 41.41 ml/min; Glucose 158 mg/dL (74-106); Potassium 4.4 mmol/L (3.5-5.1); Sodium Level 130 mmol/L (136-145)
--- NOTE | 2022-04-09 05:55 | EKG12_ITS ---
Test Reason : AM EKG Blood Pressure : / mmHG Vent. Rate : 092 BPM Atrial Rate : 092 BPM P-R Int : 182 ms QRS Dur : 144 ms QT Int : 424 ms P-R-T Axes : 077 055 036 degrees QTc Int : 524 ms Sinus rhythm with Premature atrial complexes Right bundle branch block Inferior infarct , age undetermined Anterior infarct , age undetermined Abnormal ECG When compared with ECG of 07-APR-2022 07:46, MANUAL COMPARISON REQUIRED, DATA IS UNCONFIRMED Confirmed by JERE MOTA, GUY ([id number]), metropolitan editor SURJIT DISLA ([id number]) on 04/10/2022 8:17:07 AM Referred By: MEGHAN Confirmed By:GUY OQUENDO MD
[2022-04-09] MEDS: Insulin Lispro 100 UNIT/ML INSULN.PEN SC ×2 (06:52→21:12)
[2022-04-09] MEDS: Aspirin E.C. 81 MG Tablet PO (06:52)
[2022-04-09] MEDS: Metoprolol Tartrate 25 MG Tablet PO (06:52)
[2022-04-09 07:05] LABS: Bedside Glucose 157 mg/dL (74-106)
--- NOTE | 2022-04-09 08:37 | PN.CARD_ITS ---
Subjective Subjective The patient appears to be a wake and alert at this time. He denies any ongoing chest discomfort. He still states he gets stressed when he ambulates to the restroom. He states this stress refers to becoming short of breath and dyspneic. He continues to have an element of lower extremity peripheral pitting edema. Objective Data Vital Signs: Vital Signs Temp Pulse Resp BP Pulse Ox 97.4 F L 95 16 125/90 H 98 04/09/22 06:43 04/09/22 07:00 04/09/22 06:43 04/09/22 06:52 04/09/22 06:59 Oxygen Flow Rate (L/min) 2 Oxygen Delivery Method Nasal Cannula Weight: 220 lb 0.341 oz Body Mass Index (BMI) 30.7 Intake & Output: Intake and Output for Last 24 Hours 04/07/22 04/08/22 04/09/22 23:59 23:59 23:59 Intake Total 240 / 240 713.55 / 953.55 240 / 240 Output Total 600 / 759 359 / 359 200 / 200 Balance -360 / -519 354.55 / 594.55 40 / 40 Lab / Micro Data Result Diagrams: 04/09/22 02:45 04/09/22 02:45 Labs: Laboratory Results - last 24 hr 04/08/22 12:12: POC Glucose 207 H 04/08/22 14:11: APTT 50.1 H 04/08/22 17:04: POC Glucose 187 H 04/08/22 21:05: APTT 56.9 H 04/08/22 21:30: POC Glucose 230 H 04/09/22 02:45: WBC 7.0, RBC 5.11, Hgb 15.9, Hct 46.6, MCV 91.2, MCH 31.1, MCHC 34.1, RDW Std Deviation 47.1 H, RDW Coeff of Ernestine 13.9, Plt Count 207, MPV 11.8, Immature Gran % (Auto) 0.300, Neut % (Auto) 75.1 H, Lymph % (Auto) 13.0 L, Emmet % (Auto) 10.6 H, Eos % (Auto) 0.7, Baso % (Auto) 0.3, Absolute Neuts (auto) 5.3, Absolute Lymphs (auto) 0.91, Nucleated RBC % 0 04/09/22 02:45: PT 17.3 H, INR 1.4 04/09/22 02:45: Sodium 130 L, Potassium 4.4, Chloride 98, Carbon Dioxide 19.0 L, Anion Gap 13, BUN 55 H, Creatinine 1.49 H, Estim Creat Clear Calc 41.41, Est GFR (MDRD) Af Amer 58 L, Est GFR (MDRD) Non-Af 48 L, BUN/Creatinine Ratio 36.9 H, Glucose 158 H, Calcium 9.1 04/09/22 02:45: APTT 62.8 H 04/09/22 06:47: POC Glucose 157 H Cardiology Labs/Tests 04/08/22 14:11: APTT 50.1 H 04/08/22 21:05: APTT 56.9 H 04/09/22 02:45: WBC 7.0, RBC 5.11, Hgb 15.9, Hct 46.6, MCV 91.2, MCH 31.1, MCHC 34.1, Plt Count 207, MPV 11.8, Immature Gran % (Auto) 0.300, Neut % (Auto) 75.1 H, Lymph % (Auto) 13.0 L, Emm[place] % (Auto) 10.6 H, Eos % (Auto) 0.7, Baso % (Auto) 0.3, Absolute Neuts (auto) 5.3, Nucleated RBC % 0 04/09/22 02:45: PT 17.3 H, INR 1.4 04/09/22 02:45: Sodium 130 L, Potassium 4.4, Chloride 98, Carbon Dioxide 19.0 L, Anion Gap 13, BUN 55 H, Creatinine 1.49 H, Est GFR (MDRD) Af Amer 58 L, Est GFR (MDRD) Non-Af 48 L, BUN/Creatinine Ratio 36.9 H, Glucose 158 H, Calcium 9.1 04/09/22 02:45: APTT 62.8 H Rhythm: Sinus rhythm; PACs; PVCs; 1 5 beat episode of nonsustained irregular wide-complex rhythm EKG: Sinus rhythm; PACs; right bundle branch block pattern; anterior Mcallister indeterminate age cannot be excluded; inferior MN of indeterminate age cannot be excluded ECHO: [facility] echo report: Pending Physical Exam Const alert, oriented x3 and no apparent distress Orientation / Consciousness: awake HEENT normocephalic, head/scalp atraumatic and hearing grossly normal bilaterally Eyes PERRL, EOMs intact bilaterally and conjunctivae normal Neck full ROM, supple and no JVD Resp Auscultation: rales bilateral (Scattered) Cardio regular rate and regular rhythm Rhythm: abnormal rhythm ectopic beats Heart Sounds: murmur systolic II/ harsh mid left sternal border and LVOT GI normal to inspection, nondistended, normoactive bowel sounds Extremity General Extremity: edema bilateral lower extremity Details: moderate Skin no rashes or lesions noted Psych mental status grossly normal Assessment & Plan Assessment/Plan (1) Non-ST elevation MN (NSTEMI): PLAN: The patient has abnormal cardiac enzymes which appear compatible with an acute non-ST segment elevation MN. It is unclear at this time whether this is a primary acute coronary syndrome event versus being a type II event brought out by his concerns of CHF. At the moment he is being monitored. His [facility] echo report is pending. His medications will be adjusted as deemed appropriate. A previous discussion was held with him with respect to further cardiovascular evaluation with diagnostic cardiac catheterization. At the present time the patient wants to wait until his [facility] echo report is received and reviewed prior to proceeding in such a manner. (2) CHF (congestive heart failure): PLAN: The patient has also been diagnosed with acute CHF. It is unclear at this time whether this is systolic or diastolic as there are no other objec tive studies as of his left ventricle available for review. He will continue to be monitored. A request has been placed for his [facility] echocardiogram report for further evaluation. He will continue medical therapy in the interim. (3) Atrial fibrillation, new onset: PLAN: There is been a comment that the patient had atrial fibrillation. At the moment he appears to be in sinus rhythm with underlying cardiac ectopy. His rate and rhythm will be monitored. (4) Heart murmur: PLAN: He was previously diagnosed with a cardiac murmur. Again his [facility] echo report is pending at this time with respect to any addition al information on any underlying valvular heart disease that would impact his ongoing evaluation and care. (5) Mixed hyperlipidemia: PLAN: He should continue risk factor evaluation care as deemed appropriate. Addt'l Comments The patient's case was discussed and reviewed with the patient, Dr. De La Vega, and Dr. Ginette. At the present time it appears the patient and the family want to wait on further cardiovascular evaluation until the [facility] echocardiogram report is received and reviewed. Then they will give consideration to how to proceed. They will also give consideration as to whether or not they want to proceed with further cardiac evaluation at [facility] versus being transferred to the [facility] or another tertiary care institution. This note was generated using a voice recognition system and there may be incorrect words, spelling or punctuation that were not noted when reviewing the office note prior to saving. Procedure Criteria Type of Procedure Procedure Type: Elective Elective Risks - COVID COVID Risk Discussion: The surgeon/proceduralist and patient have discussed in detail the risk of exposure to and/or potential harm posed by the COVID-19 virus with having a surgery/procedure at this time versus the risk of delaying the surgery/procedure. It is not possible to know either the risk of delaying the surgery or procedure or chance of getting an infection with perfect accuracy, but a joint decision was made between the patient and the surgeon/proceduralist to proceed at this time with the scheduled surgery/procedure as indicated on the consent form.
--- NOTE | 2022-04-09 10:49 | CASEMGMT ---
Updated clinicals faxed to [place] transfer center. Trevor DARDEN CM
--- NOTE | 2022-04-09 12:47 | CASEMGMT ---
[facility] and [facility] only. SStaten RN CM
--- NOTE | 2022-04-09 12:55 | CL.D_ITS ---
Patient Name: JOSE WALDROP Study Date: 04/09/2022 Performing: Johnson Freedman MD Ht: 71 inches 180 cm : 1940 Wt: 220.8 lbs 100 kg Age: 82 Gender: male BSA: 2.2 PROCEDURE(S) PERFORMED DC01-(51915)LHC/COR/LV CLINICAL PROFILE AND INDICATIONS Indications: ACS > 24 hrs, Suspected CAD, LV Dysfunction Heart Failure: NYHA Class: 3, Newly Diagnosed: Yes, Heart Failure Type: Systolic Stress/Imaging Stress/Image Study Performed: No Angina Classification Anginal Classification w/in 2 Weeks: Anginal Equivalent Dyspnea CAD Presentations: Non-STEMI. CONCLUSIONS Elevated Left Ventricular End Diastolic Pressure Segmented LV systolic dysfunction- Severe LVEF: by LV gram 20 % [place] Multivessel CAD Left to right collateral flow Right to left collateral flow Mitral Valve Insufficiency Moderate RECOMMENDATIONS Risk factor modification Medical therapy Surgery consult for coronary revascularization DESCRIPTION OF PROCEDURE The patient arrived to the procedure lab. The risks and benefits of the procedure as well as a full d escription of our services here and current unavailability of surgical backup were fully explained to the patient and/or their significant other prior to the catheterization. The Timeout was completed, verifying the correct patient and procedure. The patient's procedural site was prepped and draped in the usual fashion. Local anesthetic was given subcutaneously to right radial region with Lidocaine 2% . Using a modified Seldinger technique, arterial access was obtained via the right radial artery, a 6 Fr sheath was inserted. Right Coronary Artery selective angiography was then performed in multiple v iews using a 5 Fr. 4.0 [place] catheter. Left Coronary Artery selective angiography was performed in mu ltiple views using a 5 Fr. JL3.5 catheter. Left Ventriculography was performed in OJEDA projection usin g a 5 Fr. Pigtail catheter. LV to AO pullback pressures were then recorded.The arterial sheath was pulled and a TR Band was applied for hemostasis. 11CC OF AIR CORONARY ANGIOGRAPHY DOMINANCE: Right Dominant LEFT HEART ASSESSMENT Left Ventricular Ejection Fraction: by LV Gram 20 % Anterior Akinesis. Inferior Basal Hypokinesis. Inferior Mid Hypokinesis. Apical Akinesis Elevated Left Ventricular End Diastolic Pressure LVEDP: 25 mmHg LEFT MAIN: Mild calcification, proximal: 25 % Stenosis, distal: 25 % Stenosis LEFT ANTERIOR DESCENDING ARTERY: PROX LAD: Mild luminal irregularities MID LAD: 50 % Stenosis, subtotally occluded and fills late and partially DIAGONAL 1: Proximal - long: diffuse: irregular: 85 % Stenosis, Mid - 50 % Stenosis CIRCUMFLEX ARTERY: PROX CIRC: is occluded RIGHT CORONARY ARTERY: Moderate calcification Mild luminal irregularities PROX RCA: 25 % Stenosis MID RCA: 50 % Stenosis DISTAL RCA: diffuse: irregular: 85 % Stenosis, 50 % Stenosis RT PLV: proximal: diffuse: irregular: 95 % Stenosis RT PDA: Proximal - is occluded and fills partially from left to right collateral flow RIGHT AV SEGMENT: diffuse: 50 - 75 % Stenosis COLLATERAL FLOW: Collateral flow from Left to Right Collateral flow from Right to Left VALVE FINDINGS: Mitral Valve Insufficiency - Grade 2 AORTIC ROOT: Angiographically normal COMPLICATIONS No Complications PROCEDURE MEDICATIONS Fentanyl 25 mcg IV Versed 0.5 mg IV Oxygen: 3 L/min via nasal cannula Heparin given IA 04/09/2022 12:14:17 Verapamil 2.5mg, Ntg 100mcgs, 3000 units of Heparin given IA 04/09/2022 12:14:17 SUMMARY OF HEMODYNAMIC DATA Time AIR REST ECG 11:51:29 AO 93/60 (75) SA 12:16:09 LV 111/12, 28 12:26:41 LV 106/11, 25 12:26:48 LV 104/9, 24 12:27:48 LVp 105/7, 26 12:27:53 AOp 104/66 (80) 12:27:58 Signed By Johnson Freedman MD On 04/09/2022 12:54:07 Johnson Freedman MD
[2022-04-09] MEDS: 0.9% Normal Saline 1,000 ML 50 ML IV (13:00)
--- NOTE | 2022-04-09 14:09 | CASEMGMT ---
Per cardiology, pt needs transferred to tertiary facility for CABG and [facility] physicians[facility] to [facility] of [facility] need for [facility] and clinicals refaxed with addition of cath report as [facility]. CM awaiting a return call from transfer center regarding pt. Steph RITCHIE updated, voices understanding. Trevor DARDEN CM
--- NOTE | 2022-04-09 14:26 | PCM.PN.HOSP ---
Documented by User: Urvashi Hair NP, FINISH PATCHER-C 04/09/22 14:31 Subjective Subjective Patient seen and examined. Shortness of breath stable at rest. Denies chest pain. Underwent heart cath and will need referred for surgical coronary revascularization. Objective Data Objective Data Vital Signs: Vital Signs Temp Pulse Resp BP Pulse Ox 97.4 F L 76 18 98/69 98 04/09/22 10:35 04/09/22 14:00 04/09/22 14:00 04/09/22 14:00 04/09/22 14:00 Oxygen Flow Rate (L/min) 2 Oxygen Delivery Method Nasal Cannula Weight: 220 lb 0.341 oz Body Mass Index (BMI) 30.7 Intake & Output: Intake and Output for Last 24 Hours 04/07/22 04/08/22 04/09/22 23:59 23:59 23:59 Intake Total 240 / 240 713.55 / 953.55 550 / 550 Output Total 600 / 759 359 / 359 200 / 200 Balance -360 / -519 354.55 / 594.55 350 / 350 Lab / Micro Data Result Diagrams: 04/09/22 02:45 04/09/22 02:45 Labs: Laboratory Results - last 24 hr 04/08/22 14:11: APTT 50.1 H 04/08/22 17:04: POC Glucose 187 H 04/08/22 21:05: APTT 56.9 H 04/08/22 21:30: POC Glucose 230 H 04/09/22 02:45: WBC 7.0, RBC 5.11, Hgb 15.9, Hct 46.6, MCV 91.2, MCH 31.1, MCHC 34.1, RDW Std Deviation 47.1 H, RDW Coeff of Ernestnie 13.9, Plt Count 207, MPV 11.8, Immature Gran % (Auto) 0.300, Neut % (Auto) 75.1 H, Lymph % (Auto) 13.0 L, [place] % (Auto) 10.6 H, Eos % (Auto) 0.7, Baso % (Auto) 0.3, Absolute Neuts (auto) 5.3, Absolute Lymphs (auto) 0.91, Nucleated RBC % 0 04/09/22 02:45: PT 17.3 H, INR 1.4 04/09/22 02:45: Sodium 130 L, Potassium 4.4, Chloride 98, Carbon Dioxide 19.0 L, Anion Gap 13, BUN 55 H, Creatinine 1.49 H, Estim Creat Clear Calc 41.41, Est GFR (MDRD) Af Amer 58 L, Est GFR (MDRD) Non-Af 48 L, BUN/Creatinine Ratio 36.9 H, Glucose 158 H, Calcium 9.1 04/09/22 02:45: APTT 62.8 H 04/09/22 06:47: POC Glucose 157 H Physical Exam Const alert, oriented x3 and no apparent distress Orientation / Consciousness: awake, oriented to person, oriented to place and oriented to time HEENT normocephalic and moist oral mucous membranes Eyes PERRL, EOMs intact bilaterally and conjunctivae normal Neck no lymphadenopathy Resp clear to auscultation bilaterally Auscultation: diminished lung sounds Cardio regular rate, regular rhythm and no murmurs Peripheral Pulses: pulses 2+ throughout GI normal to inspection, nondistended, normoactive bowel sounds, non-tender and non-distended Extremity normal to inspection Skin no rashes or lesions noted Lesions: no lesions Rashes: no rashes Trauma: no lacerations or abrasions Neuro CN's II-XII intact bilaterally, no focal motor deficits, no sensory deficits noted and deep tendon reflexes 2+ bilaterally Psych mental status grossly normal and affect normal Assessment & Plan Assessment/Plan (1) Non-ST elevation ID (NSTEMI): PLAN: 1. Acute hypoxic respiratory failure secondary to acute heart failure with reduced ejection fraction-patient's oxygen noted to be in the 80s per EMS report. Tachypnea improved following IV Lasix. Remains on 2 L nasal cannula. BNP 1212. IV Lasix. Strict I&O. Daily weight. Recent echo at [facility] with EF 20-25%. Cardiology consulted. Patient will be referred for surgical consult for coronary revascularization as well as advanced CHF evaluation. 2. New onset atrial fibrillation-received IV Cardizem bolus in ED. converted to sinus rhythm. Continue oral metoprolol. Heparin drip. TSH mildly elevated, T4 normal. Mag normal. Recommend transition to Eliquis 2.5 twice daily at discharge. 3. NSTEMI-EKG without acute ST-T changes. Aspirin, statin. Cardiology consulted. Patient underwent heart cath which showed multivessel CAD. Will need tertiary evaluation for surgery consult for coronary vascularization. [facility]. 4. Acute kidney injury-likely cardiorenal. Improving with IV Lasix. Trend BMP. 5. Hyperlipidemia-initiated on statin. 6. Type 2 diabetes mellitus-states he is diet and exercise controlled. Hemoglobin A1c 7.8%. Accu-Cheks with sliding scale insulin. DVT Prophylaxis-Heparin This patient was seen by MELONY Aguero under the supervision of Dr. De La Vega. Time spent examining patient, reviewing data and subsequent management of care: 13 Minutes Documented by User: Dr. Troy De La Vega MD 04/09/22 14:38 Objective Data Lab / Micro Data Result Diagrams: 04/09/22 02:45 04/09/22 02:45 Charges/Coding Addendum Addendum: Dr. De La Vega: I personally reviewed the chart and examined the patient, and agree with the above findings. 82-year-old male who [facility] presented to the hospital with ongoing fatigue and shortness of breath. He also notes that his lower extremities were more swollen than usual. He is not a great historian however his son mentions that he had recently had an [facility] the [facility] where the EF was 25% however he has not had any further follow-up on this. He is on Lasix and initially was on 20 mg daily but was told recently to increase to 40 mg daily. In the ER he was found to have new onset A. fib as well as a slight troponin bump however with serial troponins he is increased to 3200, therefore with his non-STEMI and his new onset A. fib I placed him on a heparin drip. I discussed with him and his family the need for a heart cath and consulted cardiology who agreed. Also continue with low-dose Lopressor given his systolic dysfunction. He also does have a murmur on exam potentially consistent with an aortic stenosis will attempt to get records [facility] the [facility] on [facility] versus repeating another one here if we do not have to. Clinical time spent in all aspects of patient care: 45 minutes 04/08/2022: Doing well, states that he has overall improvement in shortness of breath. Denies any chest pain or lightheadedness today. Swelling is maybe a little bit improved. Continue with the heparin drip and the plan for heart cath tomorrow morning. Still [facility] the [facility], but as stated previously, his son states that his EF is 25%. Tolerating metoprolol, will increase to 25 mg p.o. twice daily. Clinical time spent in all aspects of patient care: 18 minutes 04/09/2022: We did receive his previous echo report, he does have severe pulmonary hypertension with a significantly reduced EF to 5%. He is feeling better today however he did undergo a cardiac cath which confirmed an EF of 20% it also showed mild calcification with proximal stenosis of his left main, he has 50% stenosis in his mid LAD and an 85% stenosis of his first diagonal branch, the circumflex artery is occluded and the distal RCA is 85% stenosed. Cardiology recommended at this time that he be transferred to a higher level of care for evaluation by cardiothoracic surgery for bypass. At this time we will work on initiating that transfer. Clinical time spent in all aspects of patient care: 18 minutes Visit Charges Inpatient E&M: 20764 Subs Hosp L2
[2022-04-09 16:50] LABS: Bedside Glucose 114 mg/dL (74-106)
[2022-04-09] MEDS: Potassium Chloride Oral Tablet 20 MEQ 40 MEQ PO (17:45)
[2022-04-09] MEDS: 0.9% Saline Lock 10 ML Syringe IV (17:45)
[2022-04-09] MEDS: Furosemide 40 MG/4 ML Vial IV (17:45)
[2022-04-09] MEDS: Atorvastatin Calcium 40 MG Tablet PO (21:16)
[2022-04-09 22:16] LABS: Bedside Glucose 233 mg/dL (74-106)
[2022-04-10] VITALS (8 sets, daily range): BP systolic 98–109; BP diastolic 62–75; PULSE 59–101; RESP 16; TEMP 36.4; O2SAT 95–100
[2022-04-10 01:25] LABS: Partial Thromboplast Time 47.6 Seconds (24.1-36.2)
[2022-04-10 07:06] LABS: Bedside Glucose 122 mg/dL (74-106)
[2022-04-10 07:51] LABS: Absolute Lymphocyte Count 0.91 X10^3/uL (0.83-4.51); Absolute Neutrophil Count 4.7 X10^3/uL (2.0-7.7); Basophil# 0.02 X10^3/uL; Basophil% 0.3 % (0-1); Eosinophil# 0.09 X10^3/uL; Eosinophils% 1.4 % (0-5); Hematocrit 48.6 % (40-54); Hemoglobin 16.6 g/dL (13.0-16.5); Lymphocyte # 0.91 X10^3/ul (0.83-4.51); Lymphocyte % 14.1 % (19-41); Mean Corp Hgb Conc 34.2 g/dL (32-36); Mean Corpuscular Hgb 31.3 pg (27.0-32.0); Mean Corpuscular Volume 91.7 fL (80-94); Mean Platelet Vol. 11.7 fl (6.2-12.0); Monocyte# 0.68 X10^3/uL; Monocyte% 10.6 % (0-10); NRBC Flagged by Analyzer 0 % (0-5); Neutrophil # 4.72 X10^3/uL (2.7-7.7); Neutrophil % 73.3 % (47-70); Platelet Count 196 K/mm3 (150-450); RBC Distribution Width CV 13.9 % (11.6-14.6); RBC Distribution Width SD 46.9 fl (35.1-43.9); White Blood Count 6.4 K/mm3 (4.4-11.0)
[2022-04-10 08:26] LABS: Partial Thromboplast Time 49.2 Seconds (24.1-36.2)
--- NOTE | 2022-04-10 08:31 | CASEMGMT ---
Addendum entered by Ade Farris 04/10/22 13:07: Negative COVID result faxed to [facility] [place]. Trevor RN PORTIA Addendum entered by Ade Farris 04/10/22 11:35: Contact info for nurse to nurse report is [phone] ext [phone] and Felicity DARDEN updated, voices understanding. Trevor RN CM Addendum entered by Ade Farris 04/10/22 11:32: Call from Dawna at [facility] and she states transport is set up with [facility] and they will pick pt up at 1300. Pt/ updated, voice understanding and voice no further questions/concerns/needs. 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 She requests COVID PCR result be faxed once obtained and she will call this RN CM back with official acceptance and transport time, as they will provide for pt. Per Meng Hair NP, [facility] will accept pt and wants to make sure that cath disk be sent with pt. Yaniv PCU assistant secretary, updated, voices understanding. CM to follow. Trevor DARDEN CM Addendum entered by Ade Farris 04/10/22 08:42: [facility] center also provided with Steph's contact number and they are requesting a COVID PCR is pt accepted for transfer. Trevor DARDEN CM Original Note: Call from Dawna at [facility] and she is asking whether pt is willing to transfer. This RN CM advised her that this RN PORTIA and Steph LAY BROTHER both called to transfer center yesterday to facilitate transfer for CABG and per Dawna, there is nothing in chart and she is requesting clinicals be faxed again to the same number they were faxed to yesterday. CM faxed clinicals and to follow. Dawna's contact at [place] is [phone] ext [phone]. Trevor DARDEN CM
[2022-04-10 08:42] LABS: Anion Gap 11 (5-15); BUN 52 mg/dL (7-18); Calcium,Total 9.1 mg/dL (8.5-10.1); Chloride 97 mmol/L (98-107); Creatinine, Serum 1.37 mg/dL (0.70-1.30); EST Glomerular Filtration Rate 53 mL/min (>60); Est Glom Filt Rate - Afr Amer 64 mL/min (>60); Estimated Creatinine Clearance 45.04 ml/min; Glucose 117 mg/dL (74-106); Potassium 4.6 mmol/L (3.5-5.1); Sodium Level 133 mmol/L (136-145)
[2022-04-10] MEDS: Insulin Lispro 100 UNIT/ML INSULN.PEN SC (10:34)
[2022-04-10] MEDS: SACUBITRIL/VALSARTAN 24/26 MG TABLET 1 EACH PO (10:35)
[2022-04-10] MEDS: Furosemide 40 MG/4 ML Vial IV (10:35)
[2022-04-10] MEDS: Aspirin E.C. 81 MG Tablet PO (10:35)
[2022-04-10] MEDS: Potassium Chloride Oral Tablet 20 MEQ 40 MEQ PO (10:35)
[2022-04-10] MEDS: Metoprolol Tartrate 25 MG Tablet PO (10:35)
--- NOTE | 2022-04-10 10:35 | PCM.DC.SUM ---
Documented by User: Urvashi Hair NP, [employer]-[facility] 04/10/22 10:49 Providers Date of Admission: 04/07/22 Date of Discharge: 04/10/22 Primary Care Physician: [facility] Consultations 04/07/22 12:21 Consult: Cardiology Routine Consulting Provider: Ivan Peng Reason for Consult: CHF with reduced EF (new), NSTEMI, new onset afib EMERGENT Consult: No MD Notified: Yes Date Notified: 04/07/22 Time Notified: 12:21 Method of Notification: Verbal 04/07/22 16:04 Consult: Cardiology Routine Consulting Provider: Ivan Peng Reason for Consult: CHF, afib with RVR, NSTEMI EMERGENT Consult: No MD Notified: Yes Date Notified: 04/07/22 Time Notified: 16:04 Method of Notification: Text Reason For Visit: CHF AND AFIB Diagnosis Discharge Diagnosis (1) Non-ST elevation [place] (NSTEMI): Status: Acute Code(s): I21.4 - Non-ST elevation (NSTEMI) myocardial infarction Medications at Discharge Home Medications ibuprofen 200 mg PO DAILY PRN 02/22/19 multivitamin 1 tab PO DAILY 02/20/22 aspirin 81 mg tablet,delayed release 81 mg PO DAILY 03/06/22 cholecalciferol (vitamin D3) 50 mcg (2,000 unit) tablet 50 mcg PO DAILY 03/06/22 coenzyme Q10 [CoQ-10] 100 mg PO TID 04/07/22 cyanocobalamin (vitamin B-12) [Vitamin B-12] 1,000 mcg PO DAILY 04/07/22 furosemide [Lasix] 40 mg PO DAILY 04/07/22 lisinopril 2.5 mg PO DAILY 04/07/22 Hospital Course Operations None Procedures Cardiac catheterization Summary of Care Provided Hospital Course: Patient is an 82-year-old male admitted 04/07/2022 due to dyspnea. 1. Acute hypoxic respiratory failure secondary to acute heart failure with reduced ejection fraction-patient's oxygen noted to be in the 80s per EMS report. Tachypnea improved following IV Lasix. Continues to intermittently require 2 L nasal cannula. BNP 1212. IV Lasix during admission. Recent echo at [facility] with EF 20-25%. Cardiology consulted. Transfer to [facility] for surgical consult for coronary revascularization as well as advanced CHF evaluation. Initiated on Entresto per cardiology. 2. New onset atrial fibrillation-received IV Cardizem bolus in ED. converted to sinus rhythm. Continue oral metoprolol and oral amiodarone. Heparin drip. TSH mildly elevated, T4 normal. Mag normal. Recommend transition to Eliquis 2.5 twice daily at discharge following intervention. 3. NSTEMI-EKG without acute ST-T changes. Aspirin, statin. Cardiology consulted as noted above. Patient underwent heart cath which showed multivessel CAD. Transfer to tertiary for surgery consult for coronary vascularization. 4. Acute kidney injury-initially improved with diuresis however now appears at baseline. Probable CKD stage IIIa. Prior labs completed at [facility]. 5. Hyperlipidemia-initiated on statin. 6. Type 2 diabetes mellitus-states he is diet and exercise controlled. Hemoglobin A1c 7.8%. Accu-Cheks with sliding scale insulin. Physical Exam Const alert, oriented x3 and no apparent distress Orientation / Consciousness: awake, oriented to person, oriented to place and oriented to time HEENT normocephalic and moist oral mucous membranes Eyes PERRL, EOMs intact bilaterally and conjunctivae normal Neck no lymphadenopathy Resp clear to auscultation bilaterally Auscultation: diminished lung sounds Cardio regular rate, regular rhythm and no murmurs Peripheral Pulses: pulses 2+ throughout GI normal to inspection, nondistended, normoactive bowel sounds, non-tender and non-distended Extremity normal to inspection Skin no rashes or lesions noted Lesions: no lesions Rashes: no rashes Trauma: no lacerations or abrasions Neuro CN's II-XII intact bilaterally, no focal motor deficits, no sensory deficits noted and deep tendon reflexes 2+ bilaterally Psych mental status grossly normal and affect normal Patient seen and examined prior to discharge. Physical assessment as noted above. This patient was seen by MELONY Aguero under the supervision of Dr. Palencia. Time spent examining patient, reviewing data and subsequent management of care: 18 Minutes Weight / BMI Weight Weight: 220 lb 0.341 oz Body Mass Index (BMI) 30.7 ABG / Lab / Microbiology Data Result Diagrams: 04/10/22 07:43 04/10/22 07:43 Laboratory: Laboratory Results - last 24 hr 04/09/22 16:38: POC Glucose 114 H 04/09/22 21:10: POC Glucose 233 H 04/10/22 00:55: APTT 47.6 H 04/10/22 06:40: POC Glucose 122 H 04/10/22 07:43: WBC 6.4, RBC 5.30, Hgb 16.6 H, Hct 48.6, MCV 91.7, MCH 31.3, MCHC 34.2, RDW Std Deviation 46.9 H, RDW Coeff of Ernestine 13.9, Plt Count 196, MPV 11.7, Immature Gran % (Auto) 0.300, Neut % (Auto) 73.3 H, Lymph % (Auto) 14.1 L, [place] % (Auto) 10.6 H, Eos % (Auto) 1.4, Baso % (Auto) 0.3, Absolute Neuts (auto) 4.7, Absolute Lymphs (auto) 0.91, Nucleated RBC % 0 04/10/22 07:43: Sodium 133 L, Potassium 4.6, Chloride 97 L, Carbon Dioxide 25.0, Anion Gap 11, BUN 52 H, Creatinine 1.37 H, Estim Creat Clear Calc 45.04, Est GFR (MDRD) Af Amer 64, Est GFR (MDRD) Non-Af 53 L, BUN/Creatinine Ratio 38.0 H, Glucose 117 H, Calcium 9.1 04/10/22 07:43: APTT 49.2 H Meaningful Use Info Meaningful Use Diagnoses (Choose all that apply): AMI AMI/Post PCI/Angioplasty Aspirin given w/in 24hrs of arrival?: Yes ASA at discharge?: Yes Statins at discharge?: Yes Noel/ARB at discharge?: Yes Beta Erlinda at discharge?: Yes Done w/ Acute OK measure.: Yes Discharge Plan Admission Admit Date/Time: 04/07/22 09:56 Primary Reason for Your Visit: CHF, CAD, a.fib Attending Provider: Daniel Palencia Primary Care Provider: [facility] Consulting Providers: Ivan Peng ; Troy De La Vega ; Urvashi Hair [employer] Discharge Orders/Prescriptions Prescriptions: No Action aspirin [Adult Low Dose Aspirin] 81 mg tablet,delayed release (DR/EC) 81 mg PO DAILY RF: 0 cholecalciferol (vitamin D3) 50 mcg (2,000 unit) tablet 50 mcg PO DAILY RF: 0 ibuprofen 400 MG tablet 200 mg PO DAILY PRN (Reason: Pain) RF: 0 multivitamin Tablet 1 tab PO DAILY RF: 0 furosemide [Lasix] 20 mg tablet 40 mg PO DAILY RF: 0 coenzyme Q10 [CoQ-10] 100 mg Capsule 100 mg PO TID RF: 0 cyanocobalamin (vitamin B-12) [Vitamin B-12] 1,000 mcg Tablet 1,000 mcg PO DAILY RF: 0 lisinopril 2.5 mg Tablet 2.5 mg PO DAILY RF: 0 [facility] - Disposition Disposition (needs filled in before D/C Order can be placed): [facility] Documented by User: Dr. Daniel Palencia DO 04/10/22 13:31 Providers Date of Admission: 04/07/22 Reason For Visit: CHF AND AFIB Medications at Discharge Home Medications ibuprofen 200 mg PO DAILY PRN 02/22/19 multivitamin 1 tab PO DAILY 02/20/22 aspirin 81 mg tablet,delayed release 81 mg PO DAILY 03/06/22 cholecalciferol (vitamin D3) 50 mcg (2,000 unit) tablet 50 mcg PO DAILY 03/06/22 coenzyme Q10 [CoQ-10] 100 mg PO TID 04/07/22 cyanocobalamin (vitamin B-12) [Vitamin B-12] 1,000 mcg PO DAILY 04/07/22 furosemide [Lasix] 40 mg PO DAILY 04/07/22 lisinopril 2.5 mg PO DAILY 04/07/22 Hospital Course Operations None Procedures 2-D Echocardiogram and Cardiac catheterization Summary of Care Provided Minutes Spent on Discharge: 35 Hospital Course: Patient seen and examined independently. Data and vitals reviewed. I agree with the above note by the nurse practitioner. 82-year-old male presents with shortness of breath. Patient been recently diagnosed with CHF and started on furosemide. Patient was found to have acute hypoxic respiratory failure secondary to CHF as well as new onset atrial fibrillation which did require IV diltiazem in the emergency room. I did have a non-ST patient myocardial infarction. Patient had echocardiogram on April 04 [facility] where his EF was noted to be 20 to 25%. Patient underwent a left heart catheterization on the that showed an EF of 20% with anterior akinesis, inferior basal hypokinesis, inferior mild hypokinesis, apical akinesis. The mid LAD noted to have 50% stenosis was subtotally occluded and fills late partially. Diagonal noted to be 85% stenotic and proximal circumflex was occluded. Recommendation was [facility] They did request patient have a COVID PCR prior to transfer. Did discuss with the patient and his today about the COVID test that he would need. His immediately said that he would not be getting the COVID-19 vaccine. They said that he has not been vaccinated for COVID-19 nor has he contracted COVID-19 that he is aware of. They went on to discuss with me unsolicited about the details about the dangers of COVID-19 vaccine. Patient seen and examined independently. Data and vitals reviewed. I agree with the above note by the physician staff assistant. Asked them specifically that they are telling a doctor who has been taking care of COVID for over the past 2 years about the dangers of the vaccine. They responded yes. I I asked them if they would want the input of a physician who takes care of COVID who himself has been vaccinated if they would want my opinion about the safety of COVID 19 vaccine and they responded no. They continue to provide unsolicited information about their concerns about the COVID-[address] Schuster. I did bring up to them the irony of them wanted to proceed with a medical procedure including a cardiac bypass but they would not trust the physicians about the COVID-19 vaccine. They both appear to be pretty entrenched in their decision about the COVID-19 vaccine though when I when initially spoke with him I was not planning about discussing the vaccine at all but I did after this lengthy conversation, recommend the vaccine for him given his multiple medical comorbidities. Physical Exam Const alert and no apparent distress Cardio regular rate, regular rhythm, S1 normal heart sound and S2 normal heart sound GI normal to inspection, nondistended, normoactive bowel sounds Extremity normal to inspection ABG / Lab / Microbiology Data Result Diagrams: 04/10/22 07:43 04/10/22 07:43 Discharge Plan Admission Admit Date/Time: 04/07/22 09:56 Primary Reason for Your Visit: CHF, CAD, a.fib Attending Provider: Daniel Palencia Primary Care Provider: [facility] Consulting Providers: Ivan Peng ; Troy De La Vega ; Urvashi Hair [employer] Discharge Orders/Prescriptions Prescriptions: No Action aspirin [Adult Low Dose Aspirin] 81 mg tablet,delayed release (DR/EC) 81 mg PO DAILY RF: 0 cholecalciferol (vitamin D3) 50 mcg (2,000 unit) tablet 50 mcg PO DAILY RF: 0 ibuprofen 400 MG tablet 200 mg PO DAILY PRN (Reason: Pain) RF: 0 multivitamin Tablet 1 tab PO DAILY RF: 0 furosemide [Lasix] 20 mg tablet 40 mg PO DAILY RF: 0 coenzyme Q10 [CoQ-10] 100 mg Capsule 100 mg PO TID RF: 0 cyanocobalamin (vitamin B-12) [Vitamin B-12] 1,000 mcg Tablet 1,000 mcg PO DAILY RF: 0 lisinopril 2.5 mg Tablet 2.5 mg PO DAILY RF: 0 [facility] - Disposition Disposition (needs filled in before D/C Order can be placed): [facility] Charges/Coding Visit Charges Inpatient E&M: 19824 Disch Hosp
[2022-04-10 10:41] LABS: Bedside Glucose 226 mg/dL (74-106)
--- NOTE | 2022-04-10 11:34 | PN.CARD_ITS ---
Subjective Subjective The patient is awake and alert. He states he is feeling somewhat better with respect to his respiratory status. Objective Data Vital Signs: Vital Signs Temp Pulse Resp BP Pulse Ox 97.5 F L 85 16 109/67 100 04/10/22 08:21 04/10/22 10:35 04/10/22 08:21 04/10/22 08:21 04/10/22 08:21 Oxygen Flow Rate (L/min) 2 Oxygen Delivery Method Nasal Cannula Weight: 220 lb 0.341 oz Body Mass Index (BMI) 30.7 Intake & Output: Intake and Output for Last 24 Hours 04/08/22 04/09/22 04/10/22 23:59 23:59 23:59 Intake Total 713.55 / 953.55 900 / 1140 1493.08 / 1493.08 Output Total 359 / 359 200 / 800 975 / 975 Balance 354.55 / 594.55 700 / 340 518.08 / 518.08 Lab / Micro Data Result Diagrams: 04/10/22 07:43 04/10/22 07:43 Labs: Laboratory Results - last 24 hr 04/09/22 16:38: POC Glucose 114 H 04/09/22 21:10: POC Glucose 233 H 04/10/22 00:55: APTT 47.6 H 04/10/22 06:40: POC Glucose 122 H 04/10/22 07:43: WBC 6.4, RBC 5.30, Hgb 16.6 H, Hct 48.6, MCV 91.7, MCH 31.3, MCHC 34.2, RDW Std Deviation 46.9 H, RDW Coeff of Ernestine 13.9, Plt Count 196, MPV 11.7, Immature Gran % (Auto) 0.300, Neut % (Auto) 73.3 H, Lymph % (Auto) 14.1 L, [place] % (Auto) 10.6 H, Eos % (Auto) 1.4, Baso % (Auto) 0.3, Absolute Neuts (auto) 4.7, Absolute Lymphs (auto) 0.91, Nucleated RBC % 0 04/10/22 07:43: Sodium 133 L, Potassium 4.6, Chloride 97 L, Carbon Dioxide 25.0, Anion Gap 11, BUN 52 H, Creatinine 1.37 H, Estim Creat Clear Calc 45.04, Est GFR (MDRD) Af Amer 64, Est GFR (MDRD) Non-Af 53 L, BUN/Creatinine Ratio 38.0 H, Glucose 117 H, Calcium 9.1 04/10/22 07:43: APTT 49.2 H 04/10/22 10:34: POC Glucose 226 H Cardiology Labs/Tests 04/10/22 00:55: APTT 47.6 H 04/10/22 07:43: WBC 6.4, RBC 5.30, Hgb 16.6 H, Hct 48.6, MCV 91.7, MCH 31.3, MCHC 34.2, Plt Count 196, MPV 11.7, Immature Gran % (Auto) 0.300, Neut % (Auto) 73.3 H, Lymph % (Auto) 14.1 L, [place] % (Auto) 10.6 H, Eos % (Auto) 1.4, Baso % (Auto) 0.3, Absolute Neuts (auto) 4.7, Nucleated RBC % 0 04/10/22 07:43: Sodium 133 L, Potassium 4.6, Chloride 97 L, Carbon Dioxide 25.0, Anion Gap 11, BUN 52 H, Creatinine 1.37 H, Est GFR (MDRD) Af Amer 64, Est GFR (MDRD) Non-Af 53 L, BUN/Creatinine Ratio 38.0 H, Glucose 117 H, Calcium 9.1 04/10/22 07:43: APTT 49.2 H Rhythm: Sinus rhythm; paroxysmal atrial fibrillation; paroxysmal nonsustained ventricular tachycardia Physical Exam Const alert, oriented x3 and no apparent distress General Appearance: cooperative Orientation / Consciousness: awake HEENT normocephalic, head/scalp atraumatic and hearing grossly normal bilaterally Eyes PERRL, EOMs intact bilaterally and conjunctivae normal Neck full ROM, supple and no JVD General: normal visual inspection Chest inspection of chest normal and palpation of chest normal Resp normal respiratory effort Auscultation: clear to auscultation bilaterally and rales bilateral (Less prominent compared to yesterday) Cardio regular rate, regular rhythm, S1 normal heart sound and S2 normal heart sound Cardio Narrative: Irregular rate and rhythm Jugular Venous Distention: JVD Rhythm: abnormal rhythm ectopic beats Heart Sounds: murmur systolic II/ harsh mid left sternal border and LVOT GI normal to inspection, nondistended, normoactive bowel sounds Extremity normal capillary refill General Extremity: edema bilateral lower extremity (In the dependent position: Lower extremities demonstrate a venous hue) Details: mild Skin no rashes or lesions noted Neuro oriented x3 and CN's II-XII intact bilaterally Psych mental status grossly normal Appearance: grossly normal and appropriate Assessment & Plan Assessment/Plan (1) Non-ST elevation [place] (NSTEMI): PLAN: The patient has abnormal cardiac enzymes which appear compatible with an acute non-ST segment elevation SC. The patient has undergone recent noninvasive evaluation by the [facility] with a transthoracic echocardiogram. It was received. It did demonstrate diminished LV wall motion and systolic function with an estimated LVEF of 20 to 25%. The patient has subsequently undergone evaluation with diagnostic cardiac catheterization. He does demonstrate angiographically significant multivessel disease. There is concern that his non-ST segment elevation SC may be a type II event brought out by his acute on chronic systolic mediated CHF superimposed upon his underlying CAD status. With respect to his CAD he will continue medical therapy as tolerated. He has been recommended for transfer to the [facility] for further advanced CAD evaluation with respect to high risk multivessel PCI versus CABG. (2) CHF (congestive heart failure): PLAN: The patient has also been diagnosed with acute CHF. At the present time based upon his [facility] echocardiogram and his [place] cardiac catheterization this appears to be acute on chronic systolic mediated CHF. He will continue medical therapy which hopefully will be able to include addition of afterload reducing agents. He is going to be transferred to the [facility] for consideration for revascula rization therapy as well which may benefit his underlying ischemic mediated cardiomyopathy and CHF. (3) Atrial fibrillation, new onset: PLAN: There is been a comment that the patient had atrial fibrillation. The patient has demonstrated episodes of paroxysmal atrial fibrillation. He will continue rate control therapy, initiation of antiarrhythmic therapy with amiodarone, and continuation of anticoagulant therapy as deemed appropriate. (4) Heart murmur: PLAN: He does have underlying valvular heart disease. For the [facility] echocardiogram he has mild aortic valve stenosis and mild to moderate MR/TR. Per his cardiac catheterization he has what appears to be at least moderate mitral valve regurgitation. (5) Mixed hyperlipidemia: PLAN: He should continue risk factor evaluation care as deemed appropriate. Addt'l Comments The patient's case was discussed and reviewed with the patient and the [facility] staff. This note was generated using a voice recognition system and there may be incorr ect words, spelling or punctuation that were not noted when reviewing the office note prior to saving. Procedure Criteria Type of Procedure Procedure Type: Elective Elective Risks - COVID COVID Risk Discussion: The surgeon/proceduralist and patient have discussed in detail the risk of exposure to and/or potential harm posed by the COVID-19 virus with having a surgery/procedure at this time versus the risk of delaying the surgery/procedure. It is not possible to know either the risk of delaying the surgery or procedure or chance of getting an infection with perfect accuracy, but a joint decision was made between the patient and the surgeon/proceduralist to proceed at this time with the scheduled surgery/procedure as indicated on the consent form.
--- NOTE | 2022-04-10 12:28 | NURSING ---
ATTEMPTED TO CALL REPORT TO [facility], Gissell ALMODOVAR ANSWERED AND REQUESTED I CALL BACK IN AN HOUR OR SO BECAUSE THEY DO NOT HAVE A NURSE ASSIGNED TO TAKE THE PT AT THIS TIME.
--- NOTE | 2022-04-10 15:04 | NURSING ---
KATALINA Linares from [facility] called at this time requesting report. Provided by this nurse.
== END 2022-04-10 13:15 | DRG 280 ==
LOC: ED 08:42 → PCU 10:14
PROVIDERS: Family Medicine; Hospitalist; Internal Medicine Cardiovascular Disease; Nurse Practitioner Family; Admitting Provider Family Medicine; Emergency Provider Emergency Medicine
DX: I11.0 Hypertensive heart disease with heart failure (principal); I21.A1 Myocardial infarction type 2; I50.21 Acute systolic (congestive) heart failure; J96.01 Acute respiratory failure with hypoxia; N17.9 Acute kidney failure, unspecified; I48.91 Unspecified atrial fibrillation; E11.40 Type 2 diabetes mellitus with diabetic neuropathy, unspecified; E78.2 Mixed hyperlipidemia; M48.02 Spinal stenosis, cervical region; M10.9 Gout, unspecified; I45.10 Unspecified right bundle-branch block; I25.10 Atherosclerotic heart disease of native coronary artery without angina pectoris; I34.0 Nonrheumatic mitral (valve) insufficiency; Z79.82 Long term (current) use of aspirin; Z79.899 Other long term (current) drug therapy; E66.9 Obesity, unspecified; Z68.30 Body mass index [BMI] 30.0-30.9, adult; R01.1 Cardiac murmur, unspecified; Z28.310 Unvaccinated for COVID-19; Z28.9 Immunization not carried out for unspecified reason
CPT/HCPCS: 36415; 71045; 80048; 80053; 80061; 82962; 83036; 83735; 83880; 84439; 84443; 84484; 85025; 85610; 85730; 87635; 93005; 93458; 99152; 99153; 99284; J7030; Q9967; A4216; C1769; C1894; J1940; U0003; U0005